=== PATIENT | male | born 1955 | race Caucasian/White ===

== ENCOUNTER 2016-12-17 05:30 | Observation (INO) | payer BC, OTHER ==
[2016-12-14 11:23] VITALS: BMI 33.2
[~2016-12-17] VITALS: Ht 177.8 cm; Wt 106.5 kg
[2016-12-17] VITALS (26 sets, daily range): BP systolic 121–161; BP diastolic 59–81; PULSE 88–113; RESP 16–22; Ht 177.8 cm; Wt 106.5 kg
[2016-12-17] MEDS ORDERED: SUCCINYLCHOLINE CHLORIDE 100 MG/5 ML SYG IV ONE (07:00)
[2016-12-17] MEDS ORDERED: GLYCOPYRROLATE 0.4 MG INJ ONE (07:00)
[2016-12-17] MEDS ORDERED: ROPIVACAINE 0.5 % 30 ML VIAL ONE ×2 (07:08→08:27)
[2016-12-17] MEDS ORDERED: MIDAZOLAM 1 MG/ML 2 ML INJ ONE (07:08)
[2016-12-17] MEDS ORDERED: FENTAnyl 50 MCG/ML VIAL ONE ×2 (07:08→07:40)
[2016-12-17] MEDS ORDERED: LIDOCAINE 1% (MDV) 20 ML INJ ONE (07:08)
[2016-12-17] MEDS ORDERED: PROPOFOL 20 ML ONE (07:39)
[2016-12-17] MEDS ORDERED: ROCURONIUM 50 MG INJ ONE (07:39)
[2016-12-17] MEDS ORDERED: VANCOMYCIN 1 GM INJ ONE (07:57)
[2016-12-17] MEDS ORDERED: FAMOTIDINE 20 MG INJ ONE (08:06)
[2016-12-17] MEDS ORDERED: ONDANSETRON 4 MG INJ ONE ×2 (08:06→14:12)
[2016-12-17] MEDS ORDERED: PHENYLephrine (100 MCG/ML) 5ML SYG ONE ×4 (08:17→14:21)
[2016-12-17] MEDS ORDERED: DIPHENHYDRAMINE 50 MG INJ ONE (08:25)
[2016-12-17] MEDS ORDERED: POVIDONE IODINE 10% 28.4 GM OINT ONE (08:28)
[2016-12-17] MEDS ORDERED: POLYMYXIN/BACITRACIN 1L IRRIG IRR ONE (09:01)
[2016-12-17] MEDS ORDERED: LIDOCAINE 2% JELLY 5 ML ONE (10:07)
[2016-12-17] MEDS ORDERED: LABETALOL HCL 20MG INJ IV PRN (10:30)
[2016-12-17] MEDS ORDERED: ONDANSETRON 4 MG INJ IV PRN ×2 (10:30→15:00)
[2016-12-17] MEDS ORDERED: HYDROmorphONE (0.2 MG/ML) 10ML SYG IV PRN (10:30)
[2016-12-17] MEDS ORDERED: HYDROmorphONE 2 MG/ML SYG ONE (10:50)
[2016-12-17] MEDS ORDERED: SODIUM CL BACTERIOSTATIC 30 ML INJ ONE (11:43)
[2016-12-17] MEDS ORDERED: NEOSTIGMINE 3 MG/3 ML SYRINGE ONE (14:12)
--- NOTE | 2016-12-17 14:52 | HPN ---
Date/Time of Note Date/Time of Note DATE: 12/17/16 TIME: 14:51 Interval H&P Admission Note Pt. seen H&P reviewed: No system changes Reviewed consent before surgery including risks and benefits for ORIF of the cuboid, Arthrodesis of the CC and TN joint with allograft and autograft and gastrocnemius recession Patient agrees RICHIE GRANDA MD Dec 17, 2016 14:52
--- NOTE | 2016-12-17 14:57 | OPR ---
Date/Time of Note Date/Time of Note DATE: 12/17/16 TIME: 14:57 Operative Report Procedure Date: Dec 17, 2016 Preoperative Diagnosis 1. Left foot cuboid fracture 2. 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 Left foot charcot arthropathy Postoperative Diagnosis 1. Left foot cuboid fracture 2. 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 Left foot charcot arthropathy Operation Performed 1. Left gastrocnemius recession 2. 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 Left foot cuboid open reduction internal fixation Surgeon: RICHIE GRANDA MD licensed loan officer assistant: CYNTHIA GRANDA MD Second Tree Expert: MIGUEL BAJWA Anesthesia: general, other Anesthesiologist: CUCA GUZMAN MD Tourniquet Time: 122 min a 250 mm Hg Estimated Blood Loss: 10 - 50 ml's Complications: None Pt Condition Post Procedure: stable Disposition: PACU RICHIE GRANDA MD Dec 17, 2016 14:57
[2016-12-17] MEDS ORDERED: DIPHENHYDRAMINE 25 MG CAP PO PRN (15:00)
[2016-12-17] MEDS ORDERED: morphine 10 MG INJ IV PRN (15:00)
[2016-12-17] MEDS ORDERED: OXYCODONE/ACETAMINOPHEN (5/325) TAB PO PRN (15:00)
[2016-12-17] MEDS ORDERED: POLYMYXIN/BACITRACIN 1L IRRIG ONE (15:10)
[2016-12-17] MEDS: morphine 1 MG/ML 30 ML (PCA) IV SCH (15:11)
[2016-12-17] MEDS: HYDROmorphONE (0.2 MG/ML) 10ML SYG IV PRN ×5 (15:14→15:37)
--- NOTE | 2016-12-17 15:31 | RADRPT ---
PROCEDURE: Intraoperative imaging of the left foot with fluoroscopy. CLINICAL INDICATION: Left foot pain. Intraoperative. TECHNIQUE: 6 images of the left foot were obtained in the operating room with an image intensifier . No radiologist was in attendance. COMPARISON: No prior study is available for comparison. FINDINGS: Images demonstrate fusion with multiple screws in the mid foot, talus and calcaneus. IMPRESSION: 1. Intraoperative imaging of the left foot. RPTAT: QQ .Abdi Beasley MD, MD Date Time Electronically viewed and signed by .Abdi Beasley MD, on 12/17/2016 15:30 .R/
[2016-12-17] MEDS ORDERED: GLUCOSE GEL 15 GRAM TUBE BUCCAL PRN (18:00)
[2016-12-17] MEDS ORDERED: DEXTROSE 50% 50 ML SYRINGE IV PRN ×2 (18:00)
[2016-12-17] MEDS ORDERED: GLUCOSE GEL 15 GRAM TUBE PO PRN ×2 (18:00)
[2016-12-17] MEDS ORDERED: GLUCAGON 1 MG INJ IM PRN (18:00)
[2016-12-17] MEDS ORDERED: VANCOMYCIN IV PER PHARMACY XX SCH (18:30)
[2016-12-17] MEDS: HYDROCHLOROTHIAZIDE 25 MG TAB PO SCH (18:49)
[2016-12-17] MEDS: LOSARTAN 25 MG TAB PO SCH (18:49)
[2016-12-17] MEDS ORDERED: PREG50CA PO (18:57)
[2016-12-17] MEDS ORDERED: SITA100T8 PO (18:57)
[2016-12-17] MEDS ORDERED: ASPI-664 PO (18:57)
[2016-12-17] MEDS ORDERED: ATOR40TA68 PO (18:57)
[2016-12-17] MEDS ORDERED: LOSA1TAB21 PO (18:57)
[2016-12-17] MEDS ORDERED: METF1000 PO (18:57)
[2016-12-17] MEDS: OXYCODONE/ACETAMINOPHEN (5/325) TAB PO SCH ×2 (19:00→23:00)
[2016-12-17] MEDS: INSULIN ASPART [NOVOLOG] 3 ML PEN SC SCH ×2 (19:29→21:12)
[2016-12-17 19:45] LABS: CREATININE 1.8 mg/dl (0.61-1.24)
--- NOTE | 2016-12-17 20:55 | HP ---
DATE OF ADMISSION: 12/17/2016 PRESENTING COMPLAINT: The patient was admitted for elective open reduction and internal fixation of his left ankle. ADMITTING SURGEON: Jeff Granda MD HISTORY OF PRESENT ILLNESS: Mr. Kidd is a 61-year-old male with a history of high blood pr essure and diabetes type 2 who came in today for elective repair of his left ankle after he sustaine d an injury in April 2016. Per report, he had several broken bones after he slipped on a dock. He seemed to have a basal chronic arthritis in that joint. He has successfully undergone the procedur e. For details, please review Dr. Granda's note. We will be following for diabetic and blood press ure management. PAST MEDICAL HISTORY: High blood pressure and diabetes type 2. Dyslipidemia. PAST SURGICAL HISTORY: He has had eye surgery, he has had previous elbows and wrists surgeries for neuropathy, and he has had tonsillectomy. ALLERGIES: HE HAS MULTIPLE DRUG ALLERGIES TO INCLUDE: 1. PENICILLINS. 2. CEPHALOSPORINS. 3. JEET INHIBITORS. 4. GABAPENTIN. 5. ____. 6. NEOMYCIN. 7. PHENOBARBITAL. 8. POLYMYXIN B. 9. BEE STINGS. HOME MEDICATIONS: Include: 1. Losartan. 2. Hydrochlorothiazide. 3. Januvia. 4. Lyrica. 5. Lipitor. 6. Aspirin. 7. Vitamins. SOCIAL HISTORY: Denies tobacco, alcohol, or illicit drug use. FAMILY HISTORY: Positive for cancer in his father, but no history of peripheral artery disease or s trokes or coronary artery disease. REVIEW OF SYSTEMS: I did a 12-point review of systems. Pertinent findings are as noted in the HPI. The patient does not have any acute symptoms other than being slightly lethargic from surgery. De nies chest pain, shortness of breath. Denies nausea, vomiting. Last good bowel movement was yester day. Denies dysuria, hematuria, or blood in his stool or in his urine. All other systems reviewed and negative. PHYSICAL EXAMINATION: VITAL SIGNS: Temperature 98.3, pulse 104, respirations 20, blood pressure 142/59, saturations 98% o n oxygen via nasal cannula at 2 liters a minute. GENERAL: Obese male, sleepy, but easily arousable. When aroused, alert and oriented to self, place , and person. HEENT: Head is normocephalic. Pupils are equal, round, reactive. Mucous membranes are slightly dr y. Posterior pharynx is clear of exudate. NECK: Supple without JVD. CHEST: Clear to auscultation. Good air entry on both sides. CARDIOVASCULAR: S1 and S2. No added sounds or murmurs. ABDOMEN: Obese, soft, nontender, nondistended, normoactive bowel sounds. EXTREMITIES: His right lower extremity basically is normal without edema with good range of motion, but his left lower extremity is heavily bandaged and splinted, but his visible toes are not cyanoti c and was able to wiggle them without difficulty. LABORATORY VALUES: There are no lab values to report right now, other than the fact that his blood glucose level is elevated at 202. IMPRESSION: A 61-year-old male who was admitted for elective left ankle repair after an accidental fall, managed for the following as well: 1. Poorly controlled diabetes mellitus type 2. 2. High blood pressure with suboptimal control. 3. Chronic dyslipidemia. 4. Chronic neuropathy. 5. Chronic arthritis. PLAN: The plan is to continue routine postop care per surgery. Pain control, antiemetics antipyret ics as needed. Resume home medications, titrate for improved control. Ensure the patient is on a l ow-cholesterol, 1800 ADA diet. Also include a sliding scale regimen. Prophylaxis: The patient has been started on Xarelto per the orthopedic surgeon. I will add Pepcid for GI prophylaxis. This plan of care has been discussed with the patient and his . Questions have been answered. For further information and clarification, please review the patient's chart and my orders. Dictated By: PAULINE OLIVEROS MD BA/NTS Conf#: [id number] DID#: [id number] CC: JEFF GRANDA MD;*EndCC*
[2016-12-17] MEDS ORDERED: ATORVASTATIN 20 MG TAB PO SCH (21:00)
[2016-12-17] MEDS ORDERED: VANCOMYCIN 1.5 GM in SOD CHLORIDE 0.9% 250 ML IVPB SCH (22:00)
[2016-12-18 00:06] VITALS: BP 137/72; RESP 18
[2016-12-18] MEDS: OXYCODONE/ACETAMINOPHEN (5/325) TAB PO SCH ×4 (03:00→15:59)
[2016-12-18 05:35] VITALS: BP 117/61; PULSE 115; RESP 19
[2016-12-18 06:07] LABS: MAGNESIUM 1.5 mg/dl (1.7-2.5)
[2016-12-18 06:32] LABS: THYROID STIMULATING HORMONE 0.518 MIU/L (0.465-4.680)
[2016-12-18 06:59] LABS: ADD SCAN DIFF NO
--- NOTE | 2016-12-18 07:22 | PN ---
Date/Time of Note Date/Time of Note DATE: 12/18/16 TIME: 07:19 Assessment/Plan Lines/Catheters IV Catheter Type (from Nrsg): Peripheral IV Marques in Place (from Nrsg): Yes Assessment/Plan Assessment/Plan POD#1 s/p Left foot CC and TN joint arthrodesis with allograft and local autograft, ORIF of the Cuboid, Gastroc recession - NWB to the LLE - appreciate Meds Recs for DMII and HTN - PT to GT - PO pain meds - SCDS,teds, xarelto - Patient ok to be dcd home today when cleared by medicine --- Eleno Granda MD Subjective 24 Hr Interval Summary Pain is well controlled. No f/c/n/v Constitutional: BM, ambulates, flatus, improved, no complaints, urine output Feeding: advancing diet Pain Control: well controlled Exam/Review of Systems Vital Signs Vitals Vital Signs Date Time Temp Pulse Resp B/P Pulse Ox O2 Delivery O2 Flow Rate FiO2 12/18/16 05:35 99.0 115 19 117/61 98 Nasal Cannula 2.0 Intake and Output 12/17/16 12/17/16 12/18/16 15:00 23:00 07:00 Intake Total 2400 ml 730 ml Output Total 1000 ml 1100 ml Balance 1400 ml -370 ml Exam Constitutional: alert, oriented, well developed Musculoskeletal: other (LLE/ toes wiggle, sens slightly decreased to m/l/d/p/ fdws) Results Result Diagram: 12/17/161914 RICHIE GRANDA MD Dec 18, 2016 07:22
--- NOTE | 2016-12-18 07:24 | DS ---
Date/Time of Note Date/Time of Note DATE: 12/18/16 TIME: 07:22 Discharge Summary Admission/Discharge Info Admit Date/Time Dec 17, 2016 at 14:56 Discharge Date/Time Final Diagnosis Left foot Charcot arthropathy Left foot TN and CC joint OA Left foot Cuboid fracture Patient Condition: Good Consults Internal Medicine Procedures 1. Left gastrocnemius recession 2. 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 Left foot cuboid open reduction internal fixation Hospital Course Patient admitted post op for pain control and medication management of the Diabetes an HTN. Pain well controlled post op and nvi at baseline Home Meds Reported Medications Sitagliptin* (Januvia*) 100 Mg Tablet, 100 MG PO DAILY, #30 TAB 12/17/16 Pregabalin* (Lyrica*) 50 Mg Capsule, 50 MG PO QID, CAP 12/17/16 Metformin Hcl* (Metformin Hcl*) 1,000 Mg Tablet, 2000 MG PO WITH BREAKFAST, #30 TAB 12/17/16 Losartan-Hydrochlorothiazide (Losartan-HCTZ) 100-12.5 Mg Tab, 1 TAB PO DAILY, TAB 12/17/16 Atorvastatin* (Atorvastatin*) 40 Mg Tablet, 40 MG PO QHS, #30 TAB 12/17/16 Aspirin* (Aspirin* EC) 81 Mg Tablet.dr, 81 MG PO DAILY, TAB 12/17/16 Follow-up Plan [address] Jeff Granda Pending Labs Laboratory Tests Test 12/17/16 09:51 12/17/16 18:19 12/17/16 19:15 12/17/16 21:03 Bedside Glucose 202mg/dL (70-220) 167mg/dL (70-220) 254mg/dL (70-220) Blood Urea Nitrogen 28mg/dl (7-20) Creatinine 1.80mg/dl (0.61-1.24) Test 12/18/16 05:08 Magnesium Level 1.5mg/dl (1.7-2.5) Thyroid Stimulating Hormone (TSH) 0.518MIU/L (0.465-4.680) JEFF GRANDA MD Dec 18, 2016 07:24
--- NOTE | 2016-12-18 07:26 | PDOCDIS ---
Discharge Instructions DIAGNOSIS Discharge Diagnosis: Left foot Charcot arthropathy CONDITION Patient Condition: Good HOME CARE INSTRUCTIONS: Diet Instructions: Low Fat /Cholesterol ACTIVITY: Activity Restrictions: Avoid heavy lifting Do not Drive Do not operate Machinery Do not operate Power Tool No Weight Bearing FOLLOW UP/APPOINTMENTS Appointments 1 week with RICHIE Epperson MD Dec 18, 2016 07:26
[2016-12-18 07:53] LABS: BASOPHILS % 0.3 % (0.0-2.0); EOSINOPHILS % 0.4 % (0.0-7.0); HEMATOCRIT 30.5 % (42.0-52.0); HEMOGLOBIN 10.1 g/dl (14.0-18.0); LYMPHOCYTES # 1.2 10^3/ul (0.8-2.9); LYMPHOCYTES % 12.4 % (15.0-51.0); MEAN CORPUSCULAR HEMOGLOBIN 27.7 pg (29.0-33.0); MEAN CORPUSCULAR HGB CONC 33.1 g/dl (32.0-37.0); MEAN CORPUSCULAR VOLUME 83.6 fl (82.0-101.0); MEAN PLATELET VOLUME 11.1 fl (7.4-10.4); MONOCYTE # 1.1 10^3/ul (0.3-0.9); MONOCYTES % 11.6 % (0.0-11.0); NEUTROPHIL # 7.2 10^3/ul (1.6-7.5); NEUTROPHILS % 74.9 % (39.0-77.0); PLATELET COUNT 154 10^3/UL (140-415); RED BLOOD COUNT 3.65 10^6/ul (4.70-6.10); RED CELL DISTRIBUTION WIDTH 14.6 % (11.5-14.5); WHITE BLOOD COUNT 9.6 10^3/ul (4.8-10.8)
[2016-12-18 08:10] VITALS: BP 122/64; RESP 18
[2016-12-18] MEDS: HYDROCHLOROTHIAZIDE 25 MG TAB PO SCH (08:45)
[2016-12-18] MEDS: LOSARTAN 25 MG TAB PO SCH (08:45)
[2016-12-18] MEDS: INSULIN ASPART [NOVOLOG] 3 ML PEN SC SCH ×2 (08:54→11:40)
[2016-12-18 08:57] LABS: ALBUMIN 3.4 g/dl (3.3-4.9); POTASSIUM 4.9 mmol/L (3.5-5.1)
[2016-12-18 08:59] LABS: BILIRUBIN,INDIRECT 0.3 mg/dl (0-1.1); BILIRUBIN,TOTAL 0.3 mg/dl (0.2-1.3); CREATININE 1.81 mg/dl (0.61-1.24)
[2016-12-18 09:00] LABS: ALBUMIN/GLOBULIN RATIO 1.09; TOTAL PROTEIN 6.5 g/dl (6.1-8.1)
[2016-12-18] MEDS ORDERED: ASPIRIN (EC) 81 MG TAB PO SCH (09:00)
[2016-12-18 09:01] LABS: CALCIUM 8.5 mg/dl (8.4-10.2)
[2016-12-18 10:47] LABS: ADD UMIC YES; URINE BILIRUBIN (Dip) NEGATIVE (NEGATIVE); URINE BLOOD (Dip) 1+ (NEGATIVE); URINE COLOR LT. YELLOW (YELLOW); URINE KETONES (Dip) NEGATIVE (NEGATIVE); URINE LEUKOCYTE ESTERASE (Dip) NEGATIVE (NEGATIVE); URINE NITRITE (Dip) NEGATIVE (NEGATIVE); URINE TOTAL PROTEIN (Dip) NEGATIVE (NEGATIVE); URINE UROBILINOGEN (Dip) 0.2 E.U./dL (0.1-1.0)
--- NOTE | 2016-12-18 10:57 | OPR ---
DATE OF OPERATION: 12/17/2016 SURGEON: Richie Valladares MD AUTO GARAGE ATTENDANT SURGEON: Devon Valladares MD SECOND AUTO GARAGE ATTENDANT SURGEON: EVELYN Celestin OPERATION PERFORMED: 1. Left foot gastroc resection. 2. Left foot calcaneal cuboid joint arthrodesis with autograft and allograft. 3. Left foot talonavicular joint arthrodesis with allograft and autograft. 4. Left foot cuboid open reduction internal fixation. 5. Short leg cast. 6. Use of fluoroscopy. ANESTHESIA: General with popliteal block and saphenous block. ANESTHESIOLOGIST: MD Miguelangel TOURNIQUET TIME: 122 minutes at 250 mmHg. COMPLICATIONS: None. IMPLANTS: Two Arthrex dorsal compression plates with screws and 2 partially threaded compression lag screws. INDICATIONS: The patient is a 62-year-old gentleman with a history of diabetes who sustained a cuboid fracture in April 2016. He presented in delayed fashion to me until the end of August 2016 and the patient was identified as having a cuboid fracture that was placed plantarly causing increasing pain as well as concomitant TN and CC joint OA. The patient was indicated for surgical fixation and arthrodesis. The patient was cleared by his primary care physician as well as by Dr. Carlos Kay from vascular surgery, and thus we could proceed with surgery. RISK NOTE: The patient was explained the risks and benefits of surgery in the patient's [place] language including, but not limited to, infection, bleeding, loss of limb, loss of life, need for future surgery, risk of injury to blood vessels, nerves, ligaments or tendons, risk of amputation, risk of DVT, risk of anesthesia. The patient acknowledges risks, by signing the surgical consent form. OPERATIVE NOTE: The patient was met in the preoperative holding area and the operative extremity was marked and confirmed via consent and with patient. The patient was then brought back in the operative theater, given preoperative vancomycin due to a PENICILLIN ALLERGY. Preoperative regional block anesthesia was given. The patient was then prepped and draped in the normal sterile fashion. All parties in the room agreed it was correct patient, correct extremity, correct procedure. Attention was initially turned to the mid calf on the medial aspect and incision was made over the mid calf along the medial border where it eventually carried down to the posterior fascia. The sural nerve was identified and protected. The fascia that overlaid the superficial posterior compartment was identified, and the gastroc was identified, put on stretch while the hindfoot was inverted and the fascia of the gastrocnemius was divided proximally, leaving the underlying muscle intact. After the ankle was tested to be able to do dorsiflexion 10 degrees past neutral while the hindfoot was inverted, it was noted that this was successfully achieved. We will irrigate thoroughly and close in layers with 2-0 Monocryl followed by a 3-0 running Monocryl, and Steri-Strips were placed. Attention was then turned to the calcaneal cuboid joint. Esmarch was brought up to 250 mmHg and incision was made over the calcaneal cuboid joint starting at the base of the fibula and to the fourth metatarsal. Incision was deepened into the torn brevis with care taken to identify any anterior branch of the sural nerve which was protected. The capsule of the EDB was opened and its origins were released and reflected distally. The calcaneal cuboid joint was identified, opened dorsally using a periosteal elevator. Articular cartilage was removed from the calcaneal cuboid joint and then deep retractors were placed along the wound along the plantar aspect; at this point it is noted that the fracture from the cuboid had been plantarly displaced and had gone through the plantar fascia. At this point, given the complexity due to the length in time the fracture was displace, the fracture was reduced as well as possible given the extensive amount of time that the fracture had been displaced, approximately 8 months. Once the fracture was reduced, held in place with K- wires, and then fixed with a partially threaded screw. Once the fracture was reduced and the calca-cuboid cartilage was fully debrided abd debuded and the bone was tamped up with osteotomes and a drill bit, attention was then turned to the talonavicular joint. A dorsal medial incision was made with care to avoid any injury to the neurovascular structures. The talonavicular joint was identified, opened up, and using an osteotome with curette and a drill bit and cartilage were adequately debrided to facilitate excellent fusion and proper alignment with the hindfoot in slight valgus, the talonavicular joint was reduced and fixed with a partially threaded screw followed by a dorsiflexion plate after the joint had been packed with allograft and autograft of local bone. Excellent fixation was achieved and shown in both AP, lateral, and oblique views on x- ray. Attention was then turned back to the CC joint, and again a dorsal plate was then placed across that joint and compression was then achieved at that joint as well with the foot brought into a plantar grade position. The fixation could be well achieved, and packed with allograt and local autograft was placed into the CC and TN joint. Wounds were irrigated thoroughly. The capsule was closed and the wound closed in layers with 2-0 Vicryl followed by 3- 0 Monocryl and a 4-0 nylon in vertical mattress fashion. All wounds were dressed with Xeroform, 4x4s, ABDs, and the patient was placed in a well-padded short leg splint. All sponge and needle counts were correct Modifier 22 Note: This case deserves a modifier 22 given the fact the fracture was over 8 months out from the fracture with extensive displacement and scar tissue. Also given the fact that the patient was a Charcot diabetic injury incited a week or quality of bone and more difficulty with soft tissue management to prevent any sort of infection. Given the complexity and length of time required to manage this injury the surgery should be given a modifier 22 , treated accordingly Asst. note: An orthopedic surgeon was needed as an legal support assistant for this case due to the complexity of this case. The legal support assistant performed retraction and alignment of the osteotome and saw with foot was being held into proper position and drilling also while the foot and ankle were being held in proper position. Without a orthopedic surgeon who is an expert in surgery assisting in this case the case to be a lot longer and more complex. Thus should be compensated accordingly Dictated By: RICHIE SALEH/GEOVANI Conf#: [id number] DID#: [id number] MTDD
[2016-12-18 11:37] LABS: BACTERIA,URINE RARE; URINE RBCS 0-2 /HPF (0)
[2016-12-18] MEDS ORDERED: METF1000 PO (12:12)
[2016-12-18] MEDS: morphine 1 MG/ML 30 ML (PCA) IV SCH (12:12)
--- NOTE | 2016-12-18 12:20 | PN ---
Date/Time of Note Date/Time of Note DATE: 12/18/16 TIME: 12:12 Assessment/Plan VTE Prophylaxis VTE Prophylaxis Intervention: other (Xarelto) Lines/Catheters IV Catheter Type (from Nrs): Peripheral IV Urinary Cath still in place: Yes Reason Cath still needed: other (indicate) (howard d/c) Assessment/Plan Assessment/Plan A 61-year-old male who was admitted for elective left ankle repair after an accidental fall, managed for the following as well: 1. Diabetes mellitus type 2. A1c 7.4 2. High blood pressure with good control 3. Chronic dyslipidemia. 4. Chronic neuropathy. 5. Chronic arthritis. 6. CKD 7. Transient postop Urinary retention: resolved PLAN: * OK to d/c from med standpoint * f/u with PCP in 1-2 weeks * will give short course of flomax * May benefit from outpt nephrology review Subjective 24 Hr Interval Summary Free Text/Dictation looks and feels well reports voiding without difficulty Exam/Review of Systems Vital Signs Vitals Vital Signs Date Time Temp Pulse Resp B/P Pulse Ox O2 Delivery O2 Flow Rate FiO2 12/18/16 09:00 18 12/18/16 08:10 97.9 112 122/64 97 12/18/16 05:35 Nasal Cannula 2.0 Intake and Output 12/17/16 12/17/16 12/18/16 15:00 23:00 07:00 Intake Total 2400 ml 730 ml Output Total 1000 ml 1100 ml Balance 1400 ml -370 ml Exam Constitutional: alert, oriented, No distress Psych: nl mood/affect Head: atraumatic, normocephalic Eyes: PERRL, No icteric ENMT: mucosa pink and moist Neck: non-tender, supple Respiratory: clear to auscultation, normal air movement Cardiovascular: nl pulses, regular rate and rhythm Gastrointestinal: bowel sounds, non-tender, soft Extremities: other (L LE heavily bandaged and wrapped), No edema (RL) Neurological: nl mental status, nl speech Results Result Diagram: 12/18/16 0508 12/18/16 0508 Results 24 hrs Laboratory Tests Test 12/17/16 18:19 12/17/16 19:15 12/17/16 21:03 12/18/16 05:08 Bedside Glucose 167 254 H Blood Urea Nitrogen 28 H 26 H Creatinine 1.80 H 1.81 H White Blood Count 9.6 Red Blood Count 3.65 L Hemoglobin 10.1 L Hematocrit 30.5 L Mean Corpuscular Volume 83.6 Mean Corpuscular Hemoglobin 27.7 L Mean Corpuscular Hemoglobin Concent 33.1 Red Cell Distribution Width 14.6 H Platelet Count 154 Mean Platelet Volume 11.1 H Neutrophils % 74.9 Lymphocytes % 12.4 L Monocytes % 11.6 H Eosinophils % 0.4 Basophils % 0.3 Nucleated Red Blood Cells % 0.0 Neutrophils # 7.2 Lymphocytes # 1.2 Monocytes # 1.1 H Eosinophils # 0.0 Basophils # 0.0 Nucleated Red Blood Cells # 0.0 Sodium Level 133 L Potassium Level 4.9 Chloride Level 104 Carbon Dioxide Level 25 Anion Gap 9 Glucose Level 203 Hemoglobin A1c 7.4 H Calcium Level 8.5 Magnesium Level 1.5 L Total Bilirubin 0.3 Direct Bilirubin 0.00 Indirect Bilirubin 0.3 Aspartate Amino Transf (AST/SGOT) 47 H Alanine Aminotransferase (ALT/SGPT) 34 Alkaline Phosphatase 104 Total Protein 6.5 Albumin 3.4 Globulin 3.10 Albumin/Globulin Ratio 1.09 Thyroid Stimulating Hormone (TSH) 0.518 Test 12/18/16 08:42 Bedside Glucose 191 Medications Medications Current Medications Morphine Sulfate (morphine) 5 mg Q4H PRN IV PAIN LEVEL 7-10; Start 12/17/16 at 15:00 Ondansetron HCl (Zofran Inj) 4 mg Q4H PRN IV NAUSEA AND/OR VOMITING; Start 12/17 at 15:00 Diphenhydramine HCl (Benadryl) 25 mg Q4H PRN PO ITCHING; Start 12/17/16 at 15:00 Morphine Sulfate (morphine) 1.5 MG DOSE 10 ... Q4PCA IV Last administered on 12:12; Admin Dose 30 MG; Start 12/17/16 at 15:00 Hydrochlorothiazide (Hydrochlorothiazide) 25 mg DAILY PO Last administered on 08:45; Admin Dose 25 MG; Start 12/17/16 at 18:00 Losartan Potassium (Cozaar) 25 mg DAILY PO Last administered on 12/18/16 08:45 ; Admin Dose 25 MG; Start 12/17/16 at 18:00 Atorvastatin Calcium (Lipitor) 20 mg HS PO Last administered on 12/17/16 21:09 ; Admin Dose 20 MG; Start 12/17/16 at 21:00 Aspirin (Halfprin) 81 mg DAILY PO Last administered on 12/18/16 08:44; Admin Dose 81 MG; Start 12/18/16 at 09:00 Miscellaneous Information 1 ea NOTE XX ; Start 12/17/16 at 18:00 Glucose (Glutose) 15 gm Q15M PRN PO DECREASED GLUCOSE; Start 12/17/16 at 18:00 Glucose (Glutose) 22.5 gm Q15M PRN PO DECREASED GLUCOSE; Start 12/17/16 at 18:00 Dextrose (D50w Syringe) 25 ml Q15M PRN IV DECREASED GLUCOSE; Start 12/17/16 at 18:00 Dextrose (D50w Syringe) 50 ml Q15M PRN IV DECREASED GLUCOSE; Start 12/17/16 at 18:00 Glucagon (Glucagen) 1 mg Q15M PRN IM DECREASED GLUCOSE; Start 12/17/16 at 18:00 Glucose (Glutose) 15 gm Q15M PRN BUCCAL DECREASED GLUCOSE; Start 12/17/16 at 18: 00 Oxycodone/ Acetaminophen 2 tab 2 tab Q4H PO Last administered on 12/18/16 08:44 ; Admin Dose 2 TAB; Start 12/17/16 at 19:00 Magnesium Sulfate (Magnesium Sulfate 2 Gm/50 ml) 50 ml @ 25 mls/hr ONCE ONCE IVPB ; Start 12/18/16 at 12:30; Stop 12/18/16 at 14:29; Status PAULINE WALTER Dec 18, 2016 12:20
[2016-12-18] MEDS ORDERED: TAMS-14 PO (12:21)
[2016-12-18] MEDS ORDERED: PREG50CA PO (12:23)
[2016-12-18] MEDS ORDERED: MAGNESIUM SULFATE 2 GM/50 ML 50 ML IVPB ONE (13:30)
[2016-12-18] MEDS ORDERED: RIVAROXABAN 10 MG TABLET PO SCH (17:55)
== END 2016-12-18 16:45 | disposition home or self-care (01) ==
LOC: SDS 05:30 → MS1 14:56
PROVIDERS: ADMIT Orthopaedic Surgery; ATTEND Orthopaedic Surgery
DX: S92.212A Displaced fracture of cuboid bone of left foot, initial encounter for closed fracture (principal); M19.072 Primary osteoarthritis, left ankle and foot; E11.610 Type 2 diabetes mellitus with diabetic neuropathic arthropathy; E11.40 Type 2 diabetes mellitus with diabetic neuropathy, unspecified; I10 Essential (primary) hypertension; E78.5 Hyperlipidemia, unspecified; Z79.82 Long term (current) use of aspirin; Z88.1 Allergy status to other antibiotic agents; Z88.8 Allergy status to other drugs, medicaments and biological substances; Z88.0 Allergy status to penicillin; Z91.030 Bee allergy status; W19.XXXA Unspecified fall, initial encounter; Y93.9 Activity, unspecified; Y99.9 Unspecified external cause status; Y92.9 Unspecified place or not applicable
CPT/HCPCS: 27687; 28465; 28740; 73630; 80053; 81001; 81003; 82306; 82565; 82962; 83036; 83735; 84443; 84520; 85025; 96365; 96366; 96372; 96375; 97116; 97163; 97530; G0378; J0330; J1170; J1815; J2250; J2270; J2370; J2405; J2710; J2795; J3010; J3370; J3475; J7050; J1200

== ENCOUNTER 2016-12-24 15:40 | Inpatient (IN) | payer OTHER ==
[~2016-12-24] VITALS: Ht 177.8 cm; Wt 101.8 kg
[~2016-12-24 15:40] MED LIST: ASPI-664 PO; ATOR40TA68 PO; LOSA1TAB21 PO; METF1000 PO; PREG50CA PO; SITA100T8 PO; TAMS-14 PO
[2016-12-24 15:49] VITALS: Ht 177.8 cm; Wt 101.8 kg
[2016-12-24] MEDS ORDERED: AZTREONAM 1 GM/NS (PMX) 50 ML IVPB STA (18:19)
[2016-12-24] MEDS ORDERED: SODIUM CHLORIDE 0.9% 1L BAG IV* STA (18:19)
[2016-12-24] MEDS ORDERED: VANCOMYCIN 1 GM (PMX) 250 ML IVPB STA (18:19)
--- NOTE | 2016-12-24 18:25 | CONS ---
Date/Time of Note Date/Time of Note DATE: 12/24/16 TIME: 18:25 Assessment/Plan Assessment/Plan Additional Assessment/Plan POD# 6 s/p left foot TN and CC joint arthrodesis with allograft and autograft, ORIF of cuboid. Concern for flu or pneumonia - NWB to the LLE - ESR, CRP, CMP, CBC - Broad Spectrum Abx - Blood cultures - Will do dressing change to the left foot tomorrow afternoon ---- Eleno Granda MD Consultation Date/Type/Reason Admit Date/Time 12/24/16 Date of Consultation: Dec 24, 2016 Type of Consultation: Orthopedic Surgery Referring Provider: LIZETT HOWARD Hx of Present Illness Patient is a 61-year-old gentleman with history of diabetes type 2 and Charcot arthropathy now 1 week status post left foot calcaneus and talonavicular joint arthrodesis and cuboid open reduction and internal fixation. He presented to my office today with 2 days of low grade fever and decreased appetite with general malaise along with chest congestion. My concern was for possible pneumonia or flu given his symptoms. His left wound appeared swollen but there is no drainage warmth or erythema Constitutional: chills Past Medical History Charcot arthropathy Medical History: diabetes, high cholesterol, hypertension Past Surgical History Left foot calcaneal cuboid and talonavicular joint arthrodesis with open reduction internal patient of the cuboid Family History Significant Family History: diabetes Social History Alcohol Use: none Smoking Status: Never smoker Drug Use: none Exam/Review of Systems Vital Signs Vitals Vital Signs Date Time Temp Pulse Resp B/P Pulse Ox O2 Delivery O2 Flow Rate FiO2 12/24/16 15:49 98.8 102 18 120/72 99 Exam Constitutional: alert, oriented, well developed Musculoskeletal: other (lle/ increased swelling, no drainage, decreased sens to light touch to the m/l/d/p/fdws distribution (baseline), toes wiggle) RICHIE GRANDA MD Dec 24, 2016 18:25
[2016-12-24] MEDS ORDERED: ACETAMINOPHEN 325 MG TAB PO PRN ×2 (18:30→22:30)
[2016-12-24] MEDS ORDERED: ONDANSETRON 4 MG INJ IV PRN ×2 (18:30→22:30)
[2016-12-24] MEDS ORDERED: METF500T4 PO (19:16)
[2016-12-24] MEDS ORDERED: ALPH200T2 PO (19:17)
[2016-12-24] MEDS ORDERED: VITA1CAP PO (19:22)
[2016-12-24] MEDS ORDERED: RIVA10TA PO (19:25)
[2016-12-24 19:26] LABS: ADD SCAN DIFF NO
[2016-12-24 19:33] LABS: BASOPHILS % 0.4 % (0.0-2.0); EOSINOPHILS # 0.5 10^3/ul (0.0-0.5); EOSINOPHILS % 6.1 % (0.0-7.0); HEMATOCRIT 29.4 % (42.0-52.0); HEMOGLOBIN 9.8 g/dl (14.0-18.0); LYMPHOCYTES # 1.5 10^3/ul (0.8-2.9); MEAN CORPUSCULAR HGB CONC 33.3 g/dl (32.0-37.0); MEAN PLATELET VOLUME 9.6 fl (7.4-10.4); MONOCYTE # 0.7 10^3/ul (0.3-0.9); NEUTROPHIL # 4.9 10^3/ul (1.6-7.5); PLATELET COUNT 283 10^3/UL (140-415); RED BLOOD COUNT 3.63 10^6/ul (4.70-6.10); RED CELL DISTRIBUTION WIDTH 13.9 % (11.5-14.5); WHITE BLOOD COUNT 7.7 10^3/ul (4.8-10.8)
[2016-12-24 19:42] LABS: INR 1.26; PROTIME 15.9 Sec (12.2-14.2); PT RATIO 1.2
[2016-12-24 19:43] LABS: PARTIAL THROMBOPLASTIN TIME 37.9 Sec (25.0-35.0)
[2016-12-24 19:44] LABS: ALBUMIN 3.6 g/dl (3.3-4.9)
[2016-12-24 19:46] LABS: BILIRUBIN,INDIRECT 0.4 mg/dl (0-1.1); BILIRUBIN,TOTAL 0.4 mg/dl (0.2-1.3); CREATININE 1.83 mg/dl (0.61-1.24)
[2016-12-24 19:47] LABS: ALBUMIN/GLOBULIN RATIO 0.9; TOTAL PROTEIN 7.6 g/dl (6.1-8.1)
[2016-12-24 19:48] LABS: CALCIUM 9.6 mg/dl (8.4-10.2)
[2016-12-24 19:50] LABS: C-REACTIVE PROTEIN 5.9 mg/dl (0.0-0.9)
[2016-12-24 19:57] LABS: TROPONIN-I 0.065 ng/ml (0.00-0.12)
--- NOTE | 2016-12-24 20:22 | RADRPT ---
PROCEDURE: XR Chest AP portable CLINICAL INDICATION: Possible sepsis TECHNIQUE: An AP portable radiograph of the chest was submitted. COMPARISON: None. FINDINGS: Support Hardware: None Cardiovascular: The heart is enlarged but the aorta appears atherosclerotic. The peripheral pulmona ry vasculature is upper normal. Lung Diop: The lung diop appear clear with no nodule, alveolar infiltrate, or interstitial promi nence evident. Pleural Spaces: No pneumothorax or pleural effusion is identified. Osseous Structures: The osseous structures appear intact. Soft Tissues: The soft tissues appear generous. IMPRESSION: 1. Aortic tortuosity 2. Otherwise, unremarkable portable chest. Physician Neftaly Date Time Electronically viewed and signed by Physician Neftaly on 12/24/2016 20:22 /
[2016-12-24 20:27] VITALS: PULSE 88
--- NOTE | 2016-12-24 20:57 | ERA ---
ER Documentation Chief Complaint Date/Time DATE: 12/24/16 TIME: 20:56 Chief Complaint SENT BY PMD, FOR FURTHER EVALUATION, POSSIBLE SEPSIS HPI Patient is a 61-year-old male with hypertension and diabetes who presents with possible sepsis. The patient was sent by Dr. Valladares his orthopedic surgeon. 1 week ago he had left-sided ankle surgery for a Charcot joint. The patient initially did well the few days after surgery but 2-3 days ago he started with "chest congestion". He had headache and upset stomach. He also felt chills. He took Tylenol today and saw Dr. Valladares in his office. The patient has been coughing up phlegm. He denies any leg swelling other than swelling around the site of the surgery. He has had no urinary symptoms. ROS All systems reviewed and are negative except as per history of present illness. Medications Home Meds Active Scripts Pregabalin* (Lyrica*) 50 Mg Capsule, 50 MG PO BID for 30 Days, CAP reduced to BID due to renal function Prov:PAULINE OLIVEROS 12/18/16 Reported Medications Rivaroxaban* (Xarelto*) 10 Mg Tablet, 10 MG PO DAILY, TAB 12/24/16 Vitamin B Complex (Vitamin B Complex) 1 Each Capsule, 1 EACH PO DAILY, CAP 12/24/16 Alpha Lipoic Acid (Alpha Lipoic Acid) 200 Mg Tablet, 400 MG PO DAILY, TAB 12/24/16 Metformin Hcl* (Metformin Hcl*) 500 Mg Tablet, 1000 MG PO WITH BREAKFAST DINNE, #60 TAB 12/24/16 Sitagliptin* (Januvia*) 100 Mg Tablet, 100 MG PO DAILY, #30 TAB 12/17/16 Losartan-Hydrochlorothiazide (Losartan-HCTZ) 100-12.5 Mg Tab, 1 TAB PO DAILY, TAB 12/17/16 Atorvastatin* (Atorvastatin*) 40 Mg Tablet, 40 MG PO QHS, #30 TAB 12/17/16 Aspirin* (Aspirin* EC) 81 Mg Tablet.dr, 81 MG PO DAILY, TAB 12/17/16 Discontinued Scripts Tamsulosin Hcl* (Flomax*) 0.4 Mg Cap.er.24h, 0.4 MG PO DAILY for 14 Days, CAP Prov:PAULINE OLIVEROS 12/18/16 Metformin Hcl* (Metformin Hcl*) 1,000 Mg Tablet, 1000 MG PO WITH BREAKFAST DINNE for 60 Days, TAB 2 Refills Prov:PAULINE OLIVEROS. 12/18/16 Allergies Allergies: Coded Allergies: Penicillins (Verified Allergy, Severe, ANAPHALACTIC SHOCK, 12/24/16) ampicillin (Verified Allergy, Severe, ANAPHALACTIC SHOCK, 12/24/16) cephalexin (Verified Allergy, Severe, SEVERE HIVES AND SOB, 12/24/16) enalaprilat (Verified Allergy, Severe, ANGIOEDEMA, 12/24/16) griseofulvin (Verified Allergy, Intermediate, HIVES, 12/24/16) phenobarbital (Verified Allergy, Intermediate, 12/24/16) amoxicillin (Verified Allergy, Unknown, 12/24/16) bacitracin (Verified Allergy, Unknown, 12/24/16) gabapentin (Verified Allergy, Unknown, 12/24/16) neomycin (Verified Allergy, Unknown, 12/24/16) polymyxin B (Verified Allergy, Unknown, 12/24/16) Uncoded Allergies: BEE STING (Allergy, Severe, ANAPHALACTIC SHOCK, 12/14/16) PMhx/Soc History of Surgery: Yes (Tonsillectomy, left eye surg, bone spur , left leg, left elbow/wrist) Anesthesia Reaction: No Hx Neurological Disorder: No Hx Respiratory Disorders: No Hx Cardiac Disorders: Yes (HTN, High Cholest) Hx Psychiatric Problems: No Hx Miscellaneous Medical Probl: Yes (HTN, DM2) Hx Alcohol Use: Yes (socially- couple times a month) Hx Substance Use: No Hx Tobacco Use: No Smoking Status: Never smoker FmHx Family History: No diabetes Physical Exam Vitals Vital Signs Date Time Temp Pulse Resp B/P Pulse Ox O2 Delivery O2 Flow Rate FiO2 12/24/16 20:27 88 16 139/87 99 Room Air 12/24/16 15:49 98.8 102 18 120/72 99 Physical Exam Const: No acute distress Head: Atraumatic Eyes: Normal Conjunctiva ENT: Normal External Ears, Nose and Mouth. Neck: Full range of motion..~ No meningismus. Resp: Clear to auscultation bilaterally Cardio: Regular rate and rhythm, no murmurs Abd: Soft, non tender, non distended. Normal bowel sounds Skin: No petechiae or rashes Back: No midline or flank tenderness Ext: Cast in the left lower extremity Neur: Awake and alert Psych: Normal Mood and Affect Result Diagram: 12/24/16189912/24/161899 Results 24 hrs Laboratory Tests Test 12/24/16 19:00 White Blood Count 7.710^3/ul Red Blood Count 3.6310^6/ul Hemoglobin 9.8g/dl Hematocrit 29.4% Mean Corpuscular Volume 81.0fl Mean Corpuscular Hemoglobin 27.0pg Mean Corpuscular Hemoglobin Concent 33.3g/dl Red Cell Distribution Width 13.9% Platelet Count 57081^3/UL Mean Platelet Volume 9.6fl Neutrophils % 64.0% Lymphocytes % 20.0% Monocytes % 9.0% Eosinophils % 6.1% Basophils % 0.4% Nucleated Red Blood Cells % 0.0/100WBC Neutrophils # 4.910^3/ul Lymphocytes # 1.510^3/ul Monocytes # 0.710^3/ul Eosinophils # 0.510^3/ul Basophils # 0.010^3/ul Nucleated Red Blood Cells # 0.010^3/ul Erythrocyte Sedimentation Rate 75mm/Hr Prothrombin Time 15.9Sec Prothrombin Time Ratio 1.2 INR International Normalized Ratio 1.26 Activated Partial Thromboplast Time 37.9Sec Sodium Level 139mmol/L Potassium Level 4.0mmol/L Chloride Level 101mmol/L Carbon Dioxide Level 23mmol/L Anion Gap 19 Blood Urea Nitrogen 30mg/dl Creatinine 1.83mg/dl Glucose Level 164mg/dl Lactic Acid Level 2.5mmol/L Calcium Level 9.6mg/dl Total Bilirubin 0.4mg/dl Direct Bilirubin 0.00mg/dl Indirect Bilirubin 0.4mg/dl Aspartate Amino Transf (AST/SGOT) 44IU/L Alanine Aminotransferase (ALT/SGPT) 68IU/L Alkaline Phosphatase 98IU/L Troponin I 0.065ng/ml C-Reactive Protein 5.9mg/dl Total Protein 7.6g/dl Albumin 3.6g/dl Globulin 4.00g/dl Albumin/Globulin Ratio 0.90 Current Medications Medications (Trade) Dose Ordered Sig/Joaquina Route PRN Reason Start Time Stop Time Status Last Admin Dose Admin Sodium Chloride 3160 ml 3,160 ml BOLUS OVER 2 HOURS STAT IV* 12/24/16 18:19 12/24/16 18:21 DC 4/10/17 19:25 Vancomycin HCl 250 ml @ 125 mls/hr ONCE STAT IVPB 12/24/16 18:19 12/24/16 20:18 DC 12/24/16 20:25 Aztreonam (Azactam 1gm/NS (Pmx)) 50 ml @ 100 mls/hr ONCE STAT IVPB 12/24/16 18:19 12/24/16 18:48 DC 12/24/16 19:30 Ondansetron HCl (Zofran Inj) 4 mg BRIDGE ORDER PRN IV NAUSEA AND/OR VOMITING 12/24/16 18:30 12/25/16 18:29 Acetaminophen (Tylenol Tab) 650 mg ER BRIDGE PRN PO MILD PAIN/FEVER 12/24/16 18:30 12/25/16 18:29 Procedures/MDM EKG read by me: Rate/Rhythm: Regular rate and rhythm at a normal rate Intervals: Normal Impression: No evidence of ischemia or arrhythmia Chest x-ray shows no obvious pneumonia or pneumothorax per radiology. Admit MDM: Patient's infectious symptoms have not stabilized and the patient is at risk of rapid decompensation. The patient will be admitted for careful hydration, antibiotic therapy, and infectious source control. Severe Sepsis criteria: Infectious source: Possible pneumonia End organ damage indicated by: Lactate greater than 2.0 Sepsis Management: Time of recognition of sepsis: 19:00 Within 3 hours of recognition: Blood cultures x 2 before broad-spectrum antibiotics: Yes 30 ml/kg NS bolus Completed Initial lactate 2.5 Repeat lactate pending Time of recognition of septic shock: No septic shock Septic Shock Assessment: Any lactic acid > 4.0 No Persistent hypotension (SBP < 90 or 40 mmHg drop, MAP < 65) despite 30 mL/kg IV fluid bolus No Volume Re-assessment for Septic Shock (post 30 ml/kg bolus): No septic shock at this time Persistent Hypotension Treatment: Comfort care No Central line Not Required Vasopressor started Not required I considered further perfusion assessment with CVP measurement, SCVO2, bedside ultrasound volume assessment, passive leg raise, trial of further fluid bolus. And proceeded with 30 ml/kg fluid bolus of NSS, broad spectrum antibiotics, and admission. Accepting Care Team Current data and ongoing care discussed. Admitting Physician: Dr. Chaudhry as the patient has been admitted by the panel team previously [place] Attendant(s): Dr. Valladares who has seen the patient at the bedside Outstanding Data: Repeat lactic acid and culture results Critical Care: Critical care time 35 minutes excluding all billable procedures Emergent fluid management while maintaining close respiratory support. Provision of immediate and broad-spectrum antibiotic therapy. Simultaneous assessment for possible sources in order to direct targeted therapy. Consideration for invasive and chemical support to prevent cardiopulmonary collapse. Departure Diagnosis: Primary Impression: Anemia Qualified Code: D64.9 - Anemia, unspecified type Additional Impression: Severe sepsis Condition: LIZABETH Curtis MD Dec 24, 2016 20:57
[2016-12-24 21:26] VITALS: BP 136/78; RESP 18
[2016-12-24] MEDS ORDERED: CEFEPIME 1GM/50 ML (PMX) 50 ML IVPB SCH (22:30)
[2016-12-24] MEDS ORDERED: VANCOMYCIN IV PER PHARMACY XX SCH (22:30)
[2016-12-24] MEDS ORDERED: GLUCOSE GEL 15 GRAM TUBE BUCCAL PRN (23:00)
[2016-12-24] MEDS ORDERED: PREGABALIN 25 MG CAP PO SCH (23:00)
[2016-12-24] MEDS ORDERED: GLUCAGON 1 MG INJ IM PRN (23:00)
[2016-12-24] MEDS ORDERED: GLUCOSE GEL 15 GRAM TUBE PO PRN ×2 (23:00)
[2016-12-24] MEDS ORDERED: DEXTROSE 50% 50 ML SYRINGE IV PRN ×2 (23:00)
--- NOTE | 2016-12-24 23:06 | HP ---
Date/Time of Note Date/Time of Note DATE: 12/24/16 TIME: 23:06 Assessment/Plan VTE Prophylaxis VTE Prophylaxis Intervention: other Assessment/Plan Assessment/Plan IMPRESSION 1. Probable URI 2. Recent Left Foot Surgery 3. Hx of Diabetes 4. Hx of HTN 5. Lactic Acidosis: resolved PLAN Will check Influenza A & B Will f/u Blood cx and urine cx Will place on abx. note pt has multiple allergies Will place ID consult If pt febrile with negative URI and UTI w/u, then will consider CT of left foot. Note that, physical exam by ortho without worrisome findings. HPI/ROS Admit Date/Time Admit Date/Time 12/24/16 Hx of Present Illness Patient is a 61-year-old male with a history of high blood pressure and diabetes type 2 and elective surgery of his left ankle a week ago who was sent to ER from Ortho clinic for evaluation of subjective fever, chest congestion and mild cough. In ER, he was noted to have elevated lactic acid, ESR and CRP. Vitals in ER were stable and was afebrile. On further questioning, he said his symptom of mild cough and subjective fever has been going on for about 3 days. Denied dysuria, diarrhea, chest pain or SOB. His who was at bedside reported mild URI symptoms a week ago. Pt stated that he only has mild pain on his left leg occasionally and for most part, he feels no pain. PMH/Family/Social Past Medical History Medical History: diabetes, high cholesterol, hypertension Social History Alcohol Use: none Smoking Status: Never smoker Drug Use: none Exam/Review of Systems Vital Signs Vitals Vital Signs Date Time Temp Pulse Resp B/P Pulse Ox O2 Delivery O2 Flow Rate FiO2 12/24/16 21:26 97.7 91 18 136/78 99 12/24/16 20:27 Room Air Exam Constitutional: alert, oriented, well developed Head: atraumatic, normocephalic Eyes: EOMI Neck: supple Respiratory: clear to auscultation, normal air movement Cardiovascular: nl pulses, regular rate and rhythm Gastrointestinal: non-tender, soft Extremities: other (left lower ext covered) Labs Result Diagram: 12/24/160 12/24/16 190 Medications Medications Current Medications Cefepime HCl (Maxipime 1gm/50 ml (Pmx)) 50 ml @ 100 mls/hr Q12 IVPB ; Start 07/02 at 22:30; Status UNV Acetaminophen (Tylenol Tab) 650 mg Q6H PRN PO PAIN AND OR ELEVATED TEMP; Start 12/24/16 at 22:30 Ondansetron HCl (Zofran Inj) 4 mg Q6H PRN IV NAUSEA AND/OR VOMITING; Start 07/02 at 22:30 Diagnostic Test (Pha) (Accu-Chek) 1 ea 02 XX ; Start 12/25/16 at 02:00 Aspirin (Halfprin) 81 mg DAILY PO ; Start 12/25/16 at 09:00 Atorvastatin Calcium (Lipitor) 40 mg QHS PO ; Start 12/25/16 at 21:00 Pregabalin (Lyrica) 50 mg BID PO ; Start 12/24/16 at 23:00; Status UNV Rivaroxaban (Xarelto) 10 mg DAILY PO ; Start 12/25/16 at 09:00 Miscellaneous Information 400 mg DAILY PO ; Start 12/25/16 at 09:00; Status UNV Miscellaneous Information 1 tab DAILY PO ; Start 12/25/16 at 09:00; Status UNV Miscellaneous Information 1 ea NOTE XX ; Start 12/24/16 at 23:00 Glucose (Glutose) 15 gm Q15M PRN PO DECREASED GLUCOSE; Start 12/24/16 at 23:00 Glucose (Glutose) 22.5 gm Q15M PRN PO DECREASED GLUCOSE; Start 12/24/16 at 23: 00 Dextrose (D50w Syringe) 25 ml Q15M PRN IV DECREASED GLUCOSE; Start 12/24/16 at 23:00 Dextrose (D50w Syringe) 50 ml Q15M PRN IV DECREASED GLUCOSE; Start 12/24/16 at 23:00 Glucagon (Glucagen) 1 mg Q15M PRN IM DECREASED GLUCOSE; Start 12/24/16 at 23:00 Glucose (Glutose) 15 gm Q15M PRN BUCCAL DECREASED GLUCOSE; Start 12/24/16 at 23 :00 Vitamin B Complex/ Vitamin C (Berocca) 1 cap DAILY PO ; Start 12/25/16 at 09:00 Linagliptin (Tradjenta) 5 mg DAILY PO ; Start 12/25/16 at 09:00 YOJANA FERRIS MD Dec 24, 2016 23:06
[2016-12-24 23:12] LABS: ADD UMIC NO; URINE BILIRUBIN (Dip) NEGATIVE (NEGATIVE); URINE BLOOD (Dip) NEGATIVE (NEGATIVE); URINE COLOR LT. YELLOW (YELLOW); URINE GLUCOSE (Dip) NEGATIVE (NEGATIVE); URINE KETONES (Dip) NEGATIVE (NEGATIVE); URINE LEUKOCYTE ESTERASE (Dip) NEGATIVE (NEGATIVE); URINE NITRITE (Dip) NEGATIVE (NEGATIVE); URINE TOTAL PROTEIN (Dip) NEGATIVE (NEGATIVE); URINE UROBILINOGEN (Dip) 0.2 E.U./dL (0.1-1.0)
[2016-12-25] MEDS ORDERED: ZOLPIDEM 5 MG TAB PO PRN
[2016-12-25] MEDS ORDERED: ACCU-CHEK XX SCH (02:00)
[2016-12-25 05:40] LABS: ADD SCAN DIFF NO
[2016-12-25 05:43] LABS: BASOPHILS % 0.5 % (0.0-2.0); EOSINOPHILS # 0.5 10^3/ul (0.0-0.5); HEMATOCRIT 29.2 % (42.0-52.0); HEMOGLOBIN 9.2 g/dl (14.0-18.0); LYMPHOCYTES # 1.4 10^3/ul (0.8-2.9); MEAN CORPUSCULAR HEMOGLOBIN 26.3 pg (29.0-33.0); MEAN CORPUSCULAR HGB CONC 31.5 g/dl (32.0-37.0); MEAN CORPUSCULAR VOLUME 83.4 fl (82.0-101.0); MEAN PLATELET VOLUME 9.7 fl (7.4-10.4); MONOCYTE # 0.7 10^3/ul (0.3-0.9); MONOCYTES % 10.8 % (0.0-11.0); NEUTROPHIL # 3.6 10^3/ul (1.6-7.5); NEUTROPHILS % 58.2 % (39.0-77.0); PLATELET COUNT 258 10^3/UL (140-415); RED CELL DISTRIBUTION WIDTH 14.2 % (11.5-14.5); WHITE BLOOD COUNT 6.1 10^3/ul (4.8-10.8)
[2016-12-25 06:02] LABS: ALBUMIN 3.1 g/dl (3.3-4.9)
[2016-12-25 06:03] LABS: POTASSIUM 4.7 mmol/L (3.5-5.1)
[2016-12-25 06:05] LABS: ALBUMIN/GLOBULIN RATIO 0.88; BILIRUBIN,INDIRECT 0.4 mg/dl (0-1.1); BILIRUBIN,TOTAL 0.4 mg/dl (0.2-1.3); CREATININE 1.75 mg/dl (0.61-1.24); TOTAL PROTEIN 6.6 g/dl (6.1-8.1)
[2016-12-25 06:06] LABS: CALCIUM 9.1 mg/dl (8.4-10.2); MAGNESIUM 1.6 mg/dl (1.7-2.5); PHOSPHORUS 4.4 mg/dl (2.5-4.9)
[2016-12-25 07:37] VITALS: BP 143/81; RESP 22
[2016-12-25] MEDS: INSULIN ASPART [NOVOLOG] 3 ML PEN SC SCH ×2 (08:25→11:49)
[2016-12-25] MEDS: PREGABALIN 25 MG CAP PO SCH ×2 (08:33)
[2016-12-25] MEDS ORDERED: VITAMIN B COMPLEX/VIT C CAP PO SCH (09:00)
[2016-12-25] MEDS ORDERED: LOSARTAN 50 MG TAB PO SCH (09:00)
[2016-12-25] MEDS ORDERED: NON-FORMULARY/PATIENT OWN MED (Sitagliptin* (Januvia*) 100 MG) PO SCH (09:00)
[2016-12-25] MEDS ORDERED: LINAGLIPTIN 5 MG TABLET PO SCH (09:00)
[2016-12-25] MEDS ORDERED: PREGABALIN 50 MG CAP PO SCH (09:00)
[2016-12-25] MEDS ORDERED: ALPHA LIPOIC ACID PO SCH (09:00)
[2016-12-25] MEDS ORDERED: VITAMIN B COMPLEX PO SCH (09:00)
[2016-12-25] MEDS ORDERED: VANCOMYCIN 1.5 GM in SOD CHLORIDE 0.9% 250 ML IVPB SCH (09:00)
[2016-12-25] MEDS ORDERED: NON-FORMULARY/PATIENT OWN MED (Losartan-Hydrochlorothiazide (Losartan-HCTZ) 1 TAB) PO SCH (09:00)
[2016-12-25] MEDS ORDERED: RIVAROXABAN 10 MG TABLET PO SCH (09:00)
[2016-12-25] MEDS ORDERED: HYDROCHLOROTHIAZIDE 12.5 MG CAP PO SCH (09:00)
[2016-12-25] MEDS ORDERED: ASPIRIN (EC) 81 MG TAB PO SCH (09:00)
--- NOTE | 2016-12-25 12:38 | PDOCDIS ---
Discharge Instructions CONDITION Patient Condition: Good HOME CARE INSTRUCTIONS: Diet Instructions: Regular ACTIVITY: Activity Restrictions: Special Exercises FOLLOW UP/APPOINTMENTS Appointments follow up with ortho in one week OSCAR POLLARD MD Dec 25, 2016 12:38
[2016-12-25] MEDS ORDERED: AZIT250T6 PO (12:40)
--- NOTE | 2016-12-25 13:09 | CONS ---
DATE OF ADMISSION: 12/24/2016 DATE OF CONSULTATION: 12/25/2016 TYPE OF CONSULTATION: Infectious Disease. REASON FOR CONSULTATION: Antibiotic management. HISTORY OF PRESENT ILLNESS: Leland Kidd is a 61-year-old male with a number of problems w martin comes in with probable URI and is being seen for antibiotic management. His problems include: 1. Hypertension. 2. Adult-onset diabetes. 3. Elective surgery, left ankle 1 week ago. 4. Hypercholesterolemia. Acutely, the patient was sent in because of subjective fevers, chest congestion and mild cough. He was noted to have elevated lactic acid, the ESR and CRP. In the emergency room, his vital signs wer e stable. He only had mild pain on the left leg and for the most part he feels no pain. PAST MEDICAL HISTORY: Operations as outlined. FAMILY HISTORY: Noncontributory. SOCIAL HISTORY: Does not smoke, drink or abuse drugs. ALLERGIES: HE IS ALLERGIC TO MULTIPLE MEDICATIONS INCLUDING PENICILLIN, AMOXICILLIN, AMPICILLIN, BA CITRACIN, KEFLEX AND NUMEROUS OTHER MEDICINES INCLUDING BEE STINGS. MEDICATIONS: Per chart. REVIEW OF SYSTEMS: As per HPI. PHYSICAL EXAMINATION: GENERAL: The patient is a well-developed, well-nourished male who is alert, responsive, in no acute distress. VITAL SIGNS: Stable. He is afebrile. SKIN: Without generalized rash. HEENT: Within normal limits. NECK: Supple. LYMPH NODES: None palpable. CHEST: Decreased breath sounds at the bases. HEART: Without murmur or gallop. ABDOMEN: Soft, nontender, without organosplenomegaly or masses. EXTREMITIES: Without cyanosis, clubbing, or edema. RECTAL AND GENITAL: Exam deferred. NEUROLOGIC: No focal neurological abnormalities. ANCILLARY LABORATORY DATA: White count was 7.7, H and H 9.8 and 29.4, platelet count 283,000. BUN and creatinine 30/1.83. MICROBIOLOGY: Urine cultures negative. His studies for influenza A and B are negative. The patien t was started on vancomycin and cefepime. He also received some aztreonam. I believe he is current ly on vancomycin and cefepime, though he may be on vancomycin alone at this point. His blood cultur es so far are pending. PLAN: I will dictate my findings to the hospitalist. The patient may just having an upper respirat ory tract infection since his chest x-ray, urine cultures are negative. Dictated By: SHAMIKA MURCIA MD, JD/GEOVANI Conf#: [id number] DID#: [id number]
[2016-12-25] MEDS ORDERED: MAGNESIUM OXIDE 400 MG TAB PO ONE (14:00)
--- NOTE | 2016-12-25 14:18 | DS ---
DATE OF ADMISSION: 12/24/2016 DATE OF DISCHARGE: 12/25/2016 PHYSICAL THERAPY NURSE: Dr. Jeff Valladares DIAGNOSES: 1. Upper respiratory tract infection, possibly viral. 2. Recent foot surgery. 4. Diabetes mellitus. 5. Hypertension. 6. Lactic acidosis, resolved. MEDICATIONS: 1. Alpha lipoic acid. 2. Aspirin. 3. Lipitor. 4. Azithromycin. 5. Hydrochlorothiazide and Losartan. 6. Metformin. 7. Lyrica. 8. Xarelto. 9. Januvia. 10. Multiple vitamin B complex. ALLERGIES: 1. BEE STINGS. 2. PENICILLIN. 3. AMOXICILLIN. 4. AMPICILLIN. 5. BACITRACIN. 6. KEFLEX. 7. ____. 8. GABAPENTIN. 9. GRISEOFULVIN. 10. NEOMYCIN. 11. PHENOBARBITAL. 12. POLYMYXIN B. DISPOSITION: Home. FOLLOWUP: Follow up with Dr. Jeff Valladares as outpatient. LABORATORIES: Today: WBC 6.1, hemoglobin 9.2, hematocrit 29.2, platelets 258. Sodium 141, potassi um 4.7, chloride 105, bicarbonate 25, BUN 26, creatinine 1.75, glucose 147. Hemoglobin A1c of 7.2. Lactic acid 1.6. LFTs all within normal limits. Magnesium 1.6, albumin 3.1. Urinalysis negative. Influenza A and B negative. HOSPITAL COURSE: This is a pleasant 61-year-old gentleman with a past medical history of hypertensi on, diabetes mellitus, obesity, multiple allergies who had elective left ankle surgery about a week ago and was sent to ER by orthopedic clinic secondary to evaluation of subjective fever, chest conge stion, mild cough, and lethargy. In the ER, the patient noted to have elevated lactic acid, ESR, an d CRP. The patient's vitals were stable, and he was found to be afebrile. The patient stated that his fever has been going on for about 3 days off and on. He has not had any recent travel history. No sick contact or any other discomfort. Upon evaluation in the ER, the patient was found to be af ebrile, vitals were stable. He was treated with vancomycin, normal saline, Tylenol, ____. He was a dmitted to med/surg. He was seen and evaluated by Dr. Valladares, and his chest x-ray did not show any evidence of pneumonia. Urinalysis negative. His lactic acid is starting to improve significantly. At this time, the patient denies having any chest pain, shortness of breath, nausea, vomiting, diar jah. No lethargy. His symptoms have resolved completely. He is clear as per surgical standpoint and medical standpoint to be discharged home with a close followup with his primary care physician a nd orthopedic surgeon as outpatient. His magnesium will be repleted prior to discharge. Dictated By: OSCAR POLLARD MD PN/NTS Conf#: [id number] DID#: [id number]
[2016-12-25] MEDS ORDERED: ATORVASTATIN 40 MG TAB PO SCH (21:00)
--- NOTE | 2016-12-26 13:21 | PN ---
Date/Time of Note Date/Time of Note DATE: 12/25/16 TIME: 12:20 Assessment/Plan Lines/Catheters IV Catheter Type (from [facility]): Saline Lock Assessment/Plan Chief Complaint/Hosp Course Patient is a 61-year-old gentleman with history of diabetes type 2 and Charcot arthropathy now 1 week status post left foot calcaneus and talonavicular joint arthrodesis and cuboid open reduction and internal fixation. He presented to my office today with 2 days of low grade fever and decreased appetite with general malaise along with chest congestion. My concern was for possible pneumonia or flu given his symptoms. His left wound appeared swollen but there is no drainage warmth or erythema Problems: Assessment/Plan POD# 7 s/p left foot TN and CC joint arthrodesis with allograft and autograft, ORIF of cuboid. Concern for flu or pneumonia vs URI. Flu cx neg - NWB to the LLE - Broad Spectrum Abx to be swithced to azitrhomycin - Blood cultures NGTF - dressing change today to ACell porcine dressing to the skin with Prevena incisional wound vac to the medial incision - dc home today and f/u with me on 12/28 ---- Eleno Granda MD Subjective 24 Hr Interval Summary Doing much better today he states. He denies any f/c/n/v Constitutional: no complaints Feeding: advancing diet Pain Control: well controlled Exam/Review of Systems Vital Signs Vitals Vital Signs Date Time Temp Pulse Resp B/P Pulse Ox O2 Delivery O2 Flow Rate FiO2 12/25/16 07:37 97.5 90 22 143/81 98 12/24/16 20:27 Room Air Exam Constitutional: alert, oriented, well developed Musculoskeletal: nl extremities to inspection, nl gait and stance, other (LLE/ swelling and erythema significnatly decreaed. no drainage. toes and ankle df/pf intact,) Results Result Diagram: 12/25/1651012/25/16510 RICHIE GRANDA MD Dec 26, 2016 13:21
== END 2016-12-25 14:40 | disposition home or self-care (01) | DRG 153 ==
LOC: E/R 15:40 → MS2 18:22
PROVIDERS: ADMIT Internal Medicine; ATTEND Internal Medicine
DX: J06.9 Acute upper respiratory infection, unspecified (principal); E87.2 Acidosis; I10 Essential (primary) hypertension; E11.9 Type 2 diabetes mellitus without complications; Z98.890 Other specified postprocedural states; E78.00 Pure hypercholesterolemia, unspecified; E66.9 Obesity, unspecified; Z68.32 Body mass index [BMI] 32.0-32.9, adult
CPT/HCPCS: 36415; 71010; 80053; 81003; 82962; 83036; 83605; 83735; 84100; 84484; 85025; 85610; 85651; 85730; 86140; 87040; 87086; 87400; 93005; 96365; 96375; J1815; J3370; J7030; J7050

== ENCOUNTER 2017-02-13 19:11 | Inpatient (IN) | payer OTHER ==
[~2017-02-13] VITALS: Ht 175.3 cm; Wt 106.0 kg
[2017-02-13] VITALS (10 sets, daily range): BP systolic 130–146; BP diastolic 78–90; PULSE 80–94; RESP 15–20; Ht 175.3 cm; Wt 106.0 kg
[~2017-02-13 19:11] MED LIST changes: +ALPH200T2 PO; +AZIT250T6 PO; -METF1000 PO; +METF500T4 PO; +RIVA10TA PO; -TAMS-14 PO; +VITA1CAP PO
[2017-02-13] MEDS ORDERED: SOD CHLORIDE 0.9% 1,000 ML IV STA (19:23)
[2017-02-13 19:59] LABS: ADD SCAN DIFF NO
[2017-02-13] MEDS ORDERED: LORAZEPAM 2 MG INJ IV ONE (20:00)
[2017-02-13] MEDS ORDERED: ONDANSETRON 4 MG INJ IV PRN (20:00)
[2017-02-13] MEDS ORDERED: ACETAMINOPHEN 325 MG TAB PO PRN (20:00)
--- NOTE | 2017-02-13 20:03 | RADRPT ---
PROCEDURE: XR Chest. CLINICAL INDICATION: chest pain, abdominal pain TECHNIQUE: Single frontal view of the chest was obtained COMPARISON: None FINDINGS: The heart and mediastinum are within normal limits. The lungs are clear. There is no pleural effusion or pneumothorax. RPTAT: AA IMPRESSION: No acute disease. .Parmjit Lomeli MD, MD Date Time Electronically viewed and signed by .Parmjit Lomeli MD, on 02/13/2017 20:03 .S/
--- NOTE | 2017-02-13 20:13 | RADRPT ---
PROCEDURE: XR Left Foot CLINICAL INDICATION: Charcot TECHNIQUE: AP, oblique, and lateral radiographs were submitted. COMPARISON: Intraoperative study done 12/17/2016 FINDINGS: Osseous structures: Multiple cortical screws again project through the tarsal bones, unchanged. An osteotomy air graft is again seen at the inferior lateral cuboid. There is increased lucency and po or cortical definition involving the articular surfaces of the talonavicular joint and also at the c alcaneal cuboid joint for which osteomyelitis cannot be excluded. Joint spaces: There is a mild rocker bottom configuration to the foot. The tarsal navicular and mor e distal tarsal bones appear to be is mildly subluxed medially relative to the calcaneus and talus. Soft tissues: There is diffuse soft tissue swelling with vague calcification seen in the soft tissue s. IMPRESSION: 1. No change to the multiple cortical screws been seen to the tarsal bones when compared to the pre vious intraoperative study. 2. There is increased lucency and poor cortical definition about the talonavicular and calcaneal cu boid joints. The possibility of osteomyelitis cannot be excluded. 3. There is an osteotomy nerve graft again seen at the lateral inferior cuboid. 4. Mild medial subluxation of the tarsal navicular more distal tarsal bones relative to the calcane us and talus. 4. Mild rocker bottom configuration to the foot. 5. Diffuse soft tissue swelling with calcification seen in the soft tissues. Physician Neftaly Date Time Electronically viewed and signed by Physician Neftaly on 02/13/2017 20:13 /
[2017-02-13 20:14] LABS: BASOPHIL # 0.1 10^3/ul (0.0-0.1); BASOPHILS % 0.7 % (0.0-2.0); EOSINOPHILS # 0.5 10^3/ul (0.0-0.5); EOSINOPHILS % 6.2 % (0.0-7.0); HEMATOCRIT 37.9 % (42.0-52.0); HEMOGLOBIN 12.2 g/dl (14.0-18.0); LYMPHOCYTES # 2.6 10^3/ul (0.8-2.9); LYMPHOCYTES % 36.2 % (15.0-51.0); MEAN CORPUSCULAR HEMOGLOBIN 26.2 pg (29.0-33.0); MEAN CORPUSCULAR HGB CONC 32.2 g/dl (32.0-37.0); MEAN CORPUSCULAR VOLUME 81.5 fl (82.0-101.0); MEAN PLATELET VOLUME 10.9 fl (7.4-10.4); MONOCYTE # 0.6 10^3/ul (0.3-0.9); MONOCYTES % 8.7 % (0.0-11.0); NEUTROPHIL # 3.5 10^3/ul (1.6-7.5); NEUTROPHILS % 47.6 % (39.0-77.0); PLATELET COUNT 235 10^3/UL (140-415); RED BLOOD COUNT 4.65 10^6/ul (4.70-6.10); RED CELL DISTRIBUTION WIDTH 15.2 % (11.5-14.5); WHITE BLOOD COUNT 7.3 10^3/ul (4.8-10.8)
--- NOTE | 2017-02-13 20:15 | RADRPT ---
PROCEDURE: XR Left Ankle CLINICAL INDICATION: Charcot TECHNIQUE: Standard 3 view radiographs were submitted. COMPARISON: None FINDINGS: Osseous structures: Multiple cortical screws are seen within the tarsal bones. There is an osteotom y or possibly a nonunited graft involving the inferior lateral cuboid. The osseous elements about t he ankle appear intact. Joint spaces: The ankle mortise is anatomically maintained. Soft tissues: There is diffuse soft tissue swelling and small calcifications are seen in the soft ti ssues. IMPRESSION: 1. Multiple cortical screws are seen within the tarsal bones and there is either an osteotomy or a bone graft seen at the inferior lateral cuboid. 2. The ankle mortise is anatomically maintained. 3. Diffuse soft tissue swelling seen primarily about the tarsal regions with several small calcific ations seen in the soft tissues. Physician Neftaly Date Time Electronically viewed and signed by Physician Neftaly on 02/13/2017 20:15 /
[2017-02-13] MEDS ORDERED: POLYMYXIN/BACITRACIN 1L IRRIG ONE (20:17)
[2017-02-13 20:18] LABS: INR 0.92; PROTIME 12.4 Sec (12.2-14.2)
[2017-02-13 20:19] LABS: PARTIAL THROMBOPLASTIN TIME 27.3 Sec (25.0-35.0)
[2017-02-13 20:24] LABS: ANION GAP 12 (8-16); BLOOD UREA NITROGEN 27 mg/dl (7-20); CALCIUM 10.2 mg/dl (8.4-10.2); CARBON DIOXIDE 28 mmol/L (21-31); CHLORIDE 105 mmol/L (97-110); CREATININE 1.67 mg/dl (0.61-1.24); GLUCOSE 159 mg/dl (70-220); POTASSIUM 4.4 mmol/L (3.5-5.1); SODIUM 141 mmol/L (135-144)
[2017-02-13 20:25] LABS: C-REACTIVE PROTEIN < 0.5 mg/dl (0.0-0.9)
[2017-02-13 20:36] LABS: TROPONIN-I < 0.012 ng/ml (0.00-0.12)
--- NOTE | 2017-02-13 20:44 | ERA ---
ER Documentation Chief Complaint Date/Time DATE: 02/13/17 TIME: 20:40 Chief Complaint sp left foot surgery, surgical screw is getting of from the post op site HPI Patient is a 61-year-old male with hypertension and diabetes who presents for exposed screw to the left foot. The patient was sent by Dr. Valladares as he plans to take him to the operating room tonight at approximately 8 PM. He is Lamin on the operating room schedule. He was at the child specialist today who noticed that the screw was poking out of the skin. The says that yesterday when she change the dressing it was not like that. ROS All systems reviewed and are negative except as per history of present illness. Medications Home Meds Active Scripts Azithromycin* (Azithromycin*) 250 Mg Tablet, 250 MG PO DAILY, #6 TAB Prov:OSCAR POLLARD MD 12/25/16 Pregabalin* (Lyrica*) 50 Mg Capsule, 50 MG PO BID for 30 Days, CAP reduced to BID due to renal function Prov:PAULINE OLIVEROS 12/18/16 Reported Medications Rivaroxaban* (Xarelto*) 10 Mg Tablet, 10 MG PO DAILY, TAB 12/24/16 Vitamin B Complex (Vitamin B Complex) 1 Each Capsule, 1 EACH PO DAILY, CAP 12/24/16 Alpha Lipoic Acid (Alpha Lipoic Acid) 200 Mg Tablet, 400 MG PO DAILY, TAB 12/24/16 Metformin Hcl* (Metformin Hcl*) 500 Mg Tablet, 1000 MG PO WITH BREAKFAST DINNE, #60 TAB 12/24/16 Sitagliptin* (Januvia*) 100 Mg Tablet, 100 MG PO DAILY, #30 TAB 12/17/16 Losartan-Hydrochlorothiazide (Losartan-HCTZ) 100-12.5 Mg Tab, 1 TAB PO DAILY, TAB 12/17/16 Atorvastatin* (Atorvastatin*) 40 Mg Tablet, 40 MG PO QHS, #30 TAB 12/17/16 Aspirin* (Aspirin* EC) 81 Mg Tablet., 81 MG PO DAILY, TAB 12/17/16 Allergies Allergies: Coded Allergies: Penicillins (Verified Allergy, Severe, ANAPHALACTIC SHOCK, 12/24/16) cephalexin (Verified Allergy, Severe, SEVERE HIVES AND SOB, 12/24/16) enalaprilat (Verified Allergy, Severe, ANGIOEDEMA, 12/24/16) griseofulvin (Verified Allergy, Intermediate, HIVES, 12/24/16) phenobarbital (Verified Allergy, Intermediate, 12/24/16) bacitracin (Verified Allergy, Unknown, 12/24/16) gabapentin (Verified Allergy, Unknown, 12/24/16) neomycin (Verified Allergy, Unknown, 12/24/16) polymyxin B (Verified Allergy, Unknown, 12/24/16) Uncoded Allergies: BEE STING (Allergy, Severe, ANAPHALACTIC SHOCK, 12/14/16) PMhx/Soc History of Surgery: Yes (Left foot 1 week ago, left big toe 2 yrs ago, left arm Sx, Left leg) Anesthesia Reaction: No Hx Neurological Disorder: No Hx Respiratory Disorders: No Hx Cardiac Disorders: Yes (HTN ) Hx Psychiatric Problems: No Hx Miscellaneous Medical Probl: Yes (High Cholesterol, diabetes) Hx Alcohol Use: No Hx Substance Use: No Hx Tobacco Use: No Smoking Status: Never smoker FmHx Family History: No diabetes Physical Exam Vitals Vital Signs Date Time Temp Pulse Resp B/P Pulse Ox O2 Delivery O2 Flow Rate FiO2 02/13/17 19:15 98.3 93 20 123/77 98 Physical Exam Const: No acute distress Head: Atraumatic Eyes: Normal Conjunctiva ENT: Normal External Ears, Nose and Mouth. Neck: Full range of motion..~ No meningismus. Resp: Clear to auscultation bilaterally Cardio: Regular rate and rhythm, no murmurs Abd: Soft, non tender, non distended. Normal bowel sounds Skin: Left lower extremity over the left ankle and foot is wrapped with a dressing Back: No midline or flank tenderness Ext: No cyanosis, or edema Neur: Awake and alert Psych: Normal Mood and Affect Result Diagram: 02/13/17193702/13/171937 Results 24 hrs Laboratory Tests Test 02/13/17 19:38 White Blood Count 7.310^3/ul Red Blood Count 4.6510^6/ul Hemoglobin 12.2g/dl Hematocrit 37.9% Mean Corpuscular Volume 81.5fl Mean Corpuscular Hemoglobin 26.2pg Mean Corpuscular Hemoglobin Concent 32.2g/dl Red Cell Distribution Width 15.2% Platelet Count 48866^3/UL Mean Platelet Volume 10.9fl Neutrophils % 47.6% Lymphocytes % 36.2% Monocytes % 8.7% Eosinophils % 6.2% Basophils % 0.7% Nucleated Red Blood Cells % 0.0/100WBC Neutrophils # 3.510^3/ul Lymphocytes # 2.610^3/ul Monocytes # 0.610^3/ul Eosinophils # 0.510^3/ul Basophils # 0.110^3/ul Nucleated Red Blood Cells # 0.010^3/ul Prothrombin Time Pending Prothrombin Time Ratio 1.0 INR International Normalized Ratio 0.92 Activated Partial Thromboplast Time 27.3Sec Sodium Level 141mmol/L Potassium Level 4.4mmol/L Chloride Level 105mmol/L Carbon Dioxide Level 28mmol/L Anion Gap 12 Blood Urea Nitrogen 27mg/dl Creatinine 1.67mg/dl Glucose Level 159mg/dl Hemoglobin A1c 7.2% Calcium Level 10.2mg/dl Troponin I < 0.012ng/ml C-Reactive Protein < 0.5mg/dl Current Medications Medications (Trade) Dose Ordered Sig/Joaquina Route PRN Reason Start Time Stop Time Status Last Admin Dose Admin Sodium Chloride (NS) 1,000 ml @ 1,000 mls/hr Q1H STAT IV 02/13/17 19:23 02/13/17 20:22 DC 02/13/17 20:04 Procedures/MDM PROCEDURE: XR Left Foot CLINICAL INDICATION: Charcot TECHNIQUE: AP, oblique, and lateral radiographs were submitted. COMPARISON: Intraoperative study done 12/17/2016 FINDINGS: Osseous structures: Multiple cortical screws again project through the tarsal bones, unchanged. An osteotomy air graft is again seen at the inferior lateral cuboid. There is increased lucency and poor cortical definition involving the articular surfaces of the talonavicular joint and also at the calcaneal cuboid joint for which osteomyelitis cannot be excluded. Joint spaces: There is a mild rocker bottom configuration to the foot. The tarsal navicular and more distal tarsal bones appear to be is mildly subluxed medially relative to the calcaneus and talus. Soft tissues: There is diffuse soft tissue swelling with vague calcification seen in the soft tissues. IMPRESSION: 1. No change to the multiple cortical screws been seen to the tarsal bones when compared to the previous intraoperative study. 2. There is increased lucency and poor cortical definition about the talonavicular and calcaneal cuboid joints. The possibility of osteomyelitis cannot be excluded. 3. There is an osteotomy nerve graft again seen at the lateral inferior cuboid. 4. Mild medial subluxation of the tarsal navicular more distal tarsal bones relative to the calcaneus and talus. 4. Mild rocker bottom configuration to the foot. 5. Diffuse soft tissue swelling with calcification seen in the soft tissues. Physician Neftaly Date Time Electronically viewed and signed by Physician Neftaly on 02/13/2017 20:13 PROCEDURE: XR Left Ankle CLINICAL INDICATION: Charcot TECHNIQUE: Standard 3 view radiographs were submitted. COMPARISON: None FINDINGS: Osseous structures: Multiple cortical screws are seen within the tarsal bones. There is an osteotomy or possibly a nonunited graft involving the inferior lateral cuboid. The osseous elements about the ankle appear intact. Joint spaces: The ankle mortise is anatomically maintained. Soft tissues: There is diffuse soft tissue swelling and small calcifications are seen in the soft tissues. IMPRESSION: 1. Multiple cortical screws are seen within the tarsal bones and there is either an osteotomy or a bone graft seen at the inferior lateral cuboid. 2. The ankle mortise is anatomically maintained. 3. Diffuse soft tissue swelling seen primarily about the tarsal regions with several small calcifications seen in the soft tissues. Physician Neftaly Date Time Electronically viewed and signed by Physician Neftaly on 02/13/2017 20:15 Chest x-ray negative per radiology. EKG read by me: Rate/Rhythm: Regular rate and rhythm at a normal rate Intervals: Normal Impression: No evidence of ischemia or arrhythmia Patient is a 61-year-old male with diabetes and hypertension who presents with a screw protruding from his left ankle. The patient will be going to the operating room tonight with Dr. Valladares. The patient will be admitted to a medical surgical bed under the care of Dr. Avendano. Departure Diagnosis: Primary Impression: Charcot ankle Qualified Code: M14.672 - Charcot ankle, left Condition: LIZABETH Curtis MD February 13, 2017 20:44
[2017-02-13] MEDS ORDERED: POLYMYXIN B 500000 UNIT INJ ONE (21:27)
[2017-02-13] MEDS ORDERED: OXYCODONE/ACETAMINOPHEN (10/325) TAB PO PRN (21:30)
[2017-02-13] MEDS ORDERED: PROPOFOL 20 ML ONE (21:43)
[2017-02-13] MEDS ORDERED: LIDOCAINE 1% (MDV) 20 ML INJ ONE (21:43)
[2017-02-13] MEDS ORDERED: FAMOTIDINE 20 MG INJ ONE (21:53)
[2017-02-13] MEDS ORDERED: METOCLOPRAMIDE 10 MG INJ ONE (21:53)
[2017-02-13] MEDS ORDERED: ONDANSETRON 4 MG INJ ONE (21:53)
[2017-02-13] MEDS ORDERED: ERGOCALCIFEROL 50,000 UNIT CAP PO ONE (22:00)
[2017-02-13] MEDS ORDERED: PHENYLephrine (100 MCG/ML) 5ML SYG ONE (22:01)
[2017-02-13] MEDS ORDERED: EPHEDrine SULFATE 50 MG/5 ML SYG ONE (22:13)
[2017-02-13] MEDS ORDERED: VANCOMYCIN 1 GM INJ ONE (22:24)
[2017-02-13] MEDS ORDERED: VANCOMYCIN IV PER PHARMACY XX SCH (23:30)
[2017-02-13] MEDS ORDERED: HYDROmorphONE (0.2 MG/ML) 10ML SYG IV PRN ×2 (23:30)
--- NOTE | 2017-02-13 23:36 | OPR ---
Date/Time of Note Date/Time of Note DATE: 02/13/17 TIME: 23:35 Operative Report Procedure Date: February 13, 2017 Preoperative Diagnosis Left foot hardware failure Left foot Charcot neuropathy Postoperative Diagnosis Left foot hardware failure Left foot Charcot neuropathy Operation Performed Left foot irrigation debridement Left foot hardware removal Surgeon: RICHIE GRANDA MD Anesthesia: general, other Anesthesiologist: JORDON GUZMAN DO Tourniquet Time: None Estimated Blood Loss: minimal Specimens 2 screws with 1 compression plate 3 culture swabs from the deep screw holes as well as the deep wound Complications: None Pt Condition Post Procedure: stable Disposition: PACU Indications Patient is a 61-year-old gentleman who is 8 weeks status post a left cuboid fracture open reduction internal fixation as well as a calcaneal cuboid and talonavicular joint arthrodesis. Patient has a history of Charcot neuropathy with diabetes mellitus. He has been doing well over the past 8 weeks with improving wound over the lateral aspect of his foot that is being treated by wound care. Patient reports today when going to the wound care clinic it was noticed that there was a visible screw head at the wound site. Patient was indicated for hardware removal with irrigation and debridement. Operative\Procedure Findings Risk note: Patient was explained the risks and benefits of surgery and the patient's [place] language including not limited to infection, bleeding, anesthesia risk, injury to blood vessels and nerves ligaments or tendons, risk of need for future surgery. Patient acknowledging these risk by signing surgical consent form. Procedure Description Patient was met in the preoperative holding area and operative consent was confirmed with both patient and family and operative site was confirmed and marked the preoperative holding area. Patient was then brought back in the operative theater. Patient was then prepped and draped in the normal sterile fashion. A timeout was taken and all parties in the room agreed is correct patient, extremity and procedure. C-arm was brought in and confirmed that the most distal calcaneal cuboid screw site had backed out the screw was easily removed his was not found to be secure in the bone. The second and more proximal screw was then removed and the plate was then removed. The wound was then cultured 3 and patient was then given vancomycin antibiotics. The wound was then palpated and found to have soft bone at the cuboid. The wound was then irrigated thoroughly with 9 L of normal saline and the bone was curetted. Once the wound was irrigated thoroughly a silver impregnated wound VAC was then placed at the wound site and 125 mmHg low suction was begun shown to have the wound VAC working properly with no leakage. The medial wound was shown to be well-healed and final x-rays showed that the lateral calcaneocuboid plate was removed and the remainder of the hardware appeared intact. All sponge and needle counts were correct. Patient was brought to the PACU in stable condition. Patient will be seen by Dr. Wellington from plastic surgery for possible further flap management. Patient will follow up with Dr. Wellington as well as continue with the wound VAC for the next 4-5 days. RICHIE GRANDA MD February 13, 2017 23:36
[2017-02-14 00:02] VITALS: BP 135/77; PULSE 86; RESP 17
[2017-02-14 00:11] VITALS: BP 141/81; RESP 20
[2017-02-14] MEDS ORDERED: SOD CHLORIDE 0.9% 1,000 ML IV SCH (02:57)
[2017-02-14] MEDS ORDERED: ACETAMINOPHEN 325 MG TAB PO PRN (03:00)
[2017-02-14] MEDS ORDERED: NACL 0.9% 3 ML SYG IV SCH (03:00)
[2017-02-14] MEDS ORDERED: ONDANSETRON 4 MG INJ IV PRN (03:00)
[2017-02-14] MEDS ORDERED: morphine 2 MG INJ IV PRN (03:00)
[2017-02-14] MEDS: DOCUSATE SODIUM 100 MG CAP PO SCH ×2 (03:00→06:14)
--- NOTE | 2017-02-14 03:16 | HP ---
Date/Time of Note Date/Time of Note DATE: 02/14/17 TIME: 03:03 Assessment/Plan VTE Prophylaxis VTE Prophylaxis Intervention: SCD's Lines/Catheters IV Catheter Type (from [facility] Saline Lock Assessment/Plan Chief Complaint/Hosp Course This is a 61-year-old male being admitted to the [facility] for: #1 left foot hardware failure: Patient had a previous procedure performed on his left foot and today at the wound care clinic he was noticed that the screw was sticking out. Patient had surgery for hardware removal and irrigation and debridement of the left foot. At the current time patient is doing well. We will continue gentle IV hydration with fluids. Patient likely can resume his normal diet in the a.m. plastic surgery will be seeing the patient as per Dr. Valladares's documentation for a possible skin flap. Continue wound VAC monitoring. He is on Vanco now as per podiatry accommodations. Patient on xarelto for dvt prophylaxis, will hold for now and resume upon discharge. #2 diabetes mellitus: We will recheck an A1c, put patient on mild insulin sliding scale. #3 hypertension: Continue home blood pressure medication. #4 Renal insufficiency: In December his cr was 1.80, this likely could be chronic in the setting of his htn and diabetes. Will consult nephrology. order U/a. #5 hyperlipidemia: Continue statin #6 DVT and GI prophylaxis: SCDs (holding xarelto), Protonix Further clinical strategy will be implemented as per the clinical course Problems: HPI/ROS Admit Date/Time Admit Date/Time February 13, 2017 at 19:43 Hx of Present Illness Chief complaint: Screw coming out her left foot Patient is a 61-year-old gentleman who was sent in by his performing arts technicians Dr. paulino after patient went to the wound care clinic and was noticed to have a visible screw head coming out of his left foot. He is is 8 weeks status post a left cuboid fracture open reduction internal fixation as well as a calcaneal cuboid and talonavicular joint arthrodesis. Patient has a history of Charcot neuropathy with diabetes mellitus. He has been doing well over the past 8 weeks with improving wound over the lateral aspect of his foot that is being treated by wound care. Patient was seen postop and he states that he is doing well. Currently denies any pain. He is a left lower extremity is in a cast and wrap with a wound VAC in place. Allergies: Bee sting, penicillin, bacitracin, cephalexin, enalaprilat, gabapentin, griseofulvin, neomycin, and phenobarbital, and polymyxin Medications: See KARLEE ROS Const: Negative for fever, chills, weight gain or weight loss, fatigue, or diaphoresis Eyes : No pain discharge or redness or change in visual acuity ENT: No pain, sore throat, congestion, congestion, dysphagia or discharge Respiratory: No shortness of breath, cough, sputum, wheezing, or pleuritic pain Cardiovascular: No chest pain, palpitation, PND, or edema GI : no change in appetite, abdominal pain, nausea, vomiting, diarrhea, constipation, or change in the color his stool Genitourinary: No dysuria, hematuria, flank pain , discharge or CVA tenderness Musculoskeletal: As per HPI Skin: No rash, bruising or hives Neuro: No headache, dizziness, syncope, seizure, focal weakness Endocrine: No polyuria, polydipsia, temperature intolerance Psych: No hallucination, depression, anxiety or suicidal ideation PMH/Family/Social Past Medical History Diabetes mellitus, hypertension, left foot Charcot neuropathy Past Surgical History Left hand surgery, tonsillectomy, left eye surgery, left leg fracture surgery left foot surgery (02/13) Family History Significant Family History: no pertinent family hx Social History Alcohol Use: rarely Smoking Status: Never smoker Drug Use: none Exam/Review of Systems Vital Signs Vitals Vital Signs Date Time Temp Pulse Resp B/P Pulse Ox O2 Delivery O2 Flow Rate FiO2 02/14/17 00:11 97.8 87 20 141/81 95 02/14/17 00:02 Room Air Intake and Output 02/13/17 02/13/17 02/14/17 15:00 23:00 07:00 Intake Total 1100 ml Output Total 10 ml Balance 1090 ml Exam Exam General: Patient is well-developed well-nourished The patient is alert oriented -3 lying comfortably in bed. HEENT: Atraumatic, normocephalic. The pupils are equal, round and reactive. Extraocular motor are intact Neck: Supple with full range of motion. No rigidity or meningismus Chest: Nontender Lungs: Clear to auscultation bilaterally no crackles rales or wheezing Heart: Normal S1-S2, Regular rhythm and rate. No murmur, S3, or S4 Abdomen: Soft , nontender, nondistended , bowel sounds are present. No guarding no rebound tenderness , No masses or organomegaly. No costovertebral temporal angle mass Extremities: Left lower extremity is in a cast and wrapped status post surgery, the wound VAC is draining properly. Neurologic: Normal mental status, speech normal, cranial nerves II through XII are intact, motor and sensory are intact, no focal weakness Labs Result Diagram: 02/13/17193702/13/171937 Medications Medications Current Medications Ascorbic Acid (Vitamin C) 1,000 mg DAILY PO ; Start 02/14/17 at 09:00 Oxycodone/ Acetaminophen 1 tab 1 tab Q4 PRN PO PAIN LEVEL 7-10; Start 02/13/17 at 21:30 Vancomycin HCl/ Sodium Chloride (Vancocin/NS) 250 ml @ 83.333 mls/ hr Q24H IVPB ; Start 02/14/17 at 10:30 Acetaminophen (Tylenol Tab) 650 mg Q6H PRN PO PAIN LEVEL 1-3 OR FEVER; Start at 03:00; Status CLAIRE CLUP Feb 14, 2017 03:14
[2017-02-14 05:10] LABS: ADD SCAN DIFF NO
[2017-02-14 05:11] LABS: BASOPHILS % 0.5 % (0.0-2.0); EOSINOPHILS # 0.3 10^3/ul (0.0-0.5); EOSINOPHILS % 5.7 % (0.0-7.0); HEMOGLOBIN 10.3 g/dl (14.0-18.0); LYMPHOCYTES % 33.2 % (15.0-51.0); MEAN CORPUSCULAR HEMOGLOBIN 26.4 pg (29.0-33.0); MEAN CORPUSCULAR HGB CONC 32.2 g/dl (32.0-37.0); MEAN CORPUSCULAR VOLUME 82.1 fl (82.0-101.0); MEAN PLATELET VOLUME 11.2 fl (7.4-10.4); MONOCYTE # 0.5 10^3/ul (0.3-0.9); MONOCYTES % 9.1 % (0.0-11.0); NEUTROPHILS % 51.2 % (39.0-77.0); PLATELET COUNT 158 10^3/UL (140-415); RED CELL DISTRIBUTION WIDTH 15.6 % (11.5-14.5); WHITE BLOOD COUNT 5.9 10^3/ul (4.8-10.8)
[2017-02-14 05:36] LABS: ALBUMIN 4.1 g/dl (3.3-4.9); ALBUMIN/GLOBULIN RATIO 1.57; BILIRUBIN,INDIRECT 0.1 mg/dl (0-1.1); BILIRUBIN,TOTAL 0.1 mg/dl (0.2-1.3); CALCIUM 9.2 mg/dl (8.4-10.2); CHOL/HDL RATIO 3.8 RATIO; CREATININE 1.5 mg/dl (0.61-1.24); MAGNESIUM 1.7 mg/dl (1.7-2.5); PHOSPHORUS 4.6 mg/dl (2.5-4.9); POTASSIUM 4.3 mmol/L (3.5-5.1); TOTAL PROTEIN 6.7 g/dl (6.1-8.1)
[2017-02-14] MEDS ORDERED: PANTOPRAZOLE 40 MG INJ IV SCH (06:00)
[2017-02-14 06:05] LABS: THYROID STIMULATING HORMONE 4.52 MIU/L (0.465-4.680)
[2017-02-14 08:32] VITALS: BP 126/75; RESP 18
[2017-02-14] MEDS ORDERED: ASPIRIN (EC) 81 MG TAB PO SCH (09:00)
[2017-02-14] MEDS ORDERED: LOSARTAN 50 MG TAB PO SCH (09:00)
[2017-02-14] MEDS ORDERED: HYDROCHLOROTHIAZIDE 12.5 MG CAP PO SCH (09:00)
[2017-02-14] MEDS ORDERED: PREGABALIN 25 MG CAP PO SCH (09:00)
[2017-02-14] MEDS ORDERED: ALPHA LIPOIC ACID PO SCH (09:00)
[2017-02-14] MEDS ORDERED: BISACODYL (EC) 5 MG TAB PO SCH (09:00)
[2017-02-14] MEDS ORDERED: ASCORBIC ACID 500 MG TAB PO SCH (09:00)
--- NOTE | 2017-02-14 09:00 | QN ---
Documentation Comment 1. Chronic kidney disease rule out diabetic nephropathy 2. Diabetes mellitus type 2 last A1c 7.4/good in-house control so far 3. Dyslipidemia 4. Chronic hypochromic anemia 5. Multiple drug allergies * Continue current treatment plan, further interventions per clinical course. PAULINE OLIVEROS Feb 14, 2017 09:00
[2017-02-14] MEDS ORDERED: GLUCAGON 1 MG INJ IM PRN (09:30)
[2017-02-14] MEDS ORDERED: GLUCOSE GEL 15 GRAM TUBE BUCCAL PRN (09:30)
[2017-02-14] MEDS ORDERED: DEXTROSE 50% 50 ML SYRINGE IV PRN ×2 (09:30)
[2017-02-14] MEDS ORDERED: GLUCOSE GEL 15 GRAM TUBE PO PRN ×2 (09:30)
[2017-02-14] MEDS ORDERED: LINAGLIPTIN 5 MG TABLET PO SCH (09:30)
[2017-02-14] MEDS ORDERED: VANCOMYCIN 1.5 GM in SOD CHLORIDE 0.9% 250 ML IVPB SCH (10:30)
[2017-02-14] MEDS ORDERED: PREGABALIN 50 MG CAP PO ONE (12:00)
--- NOTE | 2017-02-14 14:38 | CONS ---
DATE OF ADMISSION: 02/13/2017 DATE OF CONSULTATION: TYPE OF CONSULTATION: Renal. Thank you, Dr. Oliveros, for asking me to participate in medical management of this patient. REASON FOR CONSULTATION: Chronic kidney disease. HISTORY OF PRESENT ILLNESS: This 61-year-old man was admitted yesterday after he found some hardwar e from a previous left foot surgery extending out from the lateral aspect of his ankle. The patient has a history of a left foot cuboid bone fracture from an injury in April of 2016. The patient ev entually saw Dr. Jeff Valladares in August and was diagnosed with this fracture. The patient eventual ly had surgery 12/17/2016 to fix the left foot cuboid bone fracture. This surgery was done by Dr. Eleno Valladares. The patient was doing well postoperatively and was being seen at a wound care center wh en he was noticed to have a screw extending from his left ankle. The patient called Dr. Valladares, was admitted to the hospital yesterday and had surgery yesterday. The patient is now 1 day postop a re construction of his left foot surgery. The surgery as described was a Charcot foot reconstruction. The patient says that he has a history of type 2 diabetes mellitus since 2013. He has a history of peripheral neuropathy; however, it was never diagnosed as diabetic neuropathy. The patient does h ave a history of an elevated serum creatinine and did see a marketing analytics manager somewhere in the [facility] 2 years ago, and he said he had a complete workup which was negative. The patient is on losartan /hydrochlorothiazide for hypertension. He said that was discontinued. He was switched to another edicine but the other medicine he does not know the name of, was eventually discontinued. The patie nt denies diabetic retinopathy. PAST MEDICAL HISTORY: Remarkable for hypertension, hyperlipidemia. ALLERGIES: THE PATIENT HAS A LARGE NUMBER OF ALLERGIES INCLUDIN. BEE STING. 2. PENICILLIN. 3. BACITRACIN. 4. CEPHALEXIN. 5. ENALAPRIL, 6. GABAPENTIN. 7. GRISEOFULVIN. 8. NEOMYCIN. 9. PHENOBARBITAL. 10. POLYMYXIN. CURRENT MEDICATIONS: Include the followin. Azithromycin. 2. Xarelto 10 mg a day. 3. Atorvastatin 40 mg a day. 4. Losartan HCT 100/12.5. 5. Aspirin 81 mg a day. 6. Lyrica 50 mg twice a day. 7. Metformin 1000 mg with breakfast and dinner. 8. Januvia 100 mg a day. 9. Vitamin B complex. 10. Alpha- Lipoic acid. PHYSICAL EXAMINATION: GENERAL: At this time reveals a well-developed man in no apparent distress. VITAL SIGNS: Temperature 98, pulse of 87, respirations 18, blood pressure 126/75, O2 saturation 99% on room air. HEENT: Head normocephalic. Eyes: Extraocular muscles intact. NOSE AND MOUTH: Normal. NECK: Supple. No neck vein distention. LUNGS: Clear to auscultation. HEART: Regular rhythm. No murmurs, gallops or rubs. ABDOMEN: Soft, nontender, no masses or megaly. EXTREMITIES: He has a large boot cast on the left leg. Right leg, no peripheral edema. LABORATORIES: His laboratory tests done today, sodium 136, potassium 4.3, chloride 106, CO2 24, BUN 24, creatinine 1.5. His hemoglobin A1c is 7.4, hemoglobin 10.3, hematocrit 32, white blood count 5 900. LABORATORY DATA: Urinalysis was not done. IMPRESSION: This patient seems to have chronic kidney disease. He denies a history of proteinuria. He says that he has only had diabetes for 3 years; however, he does have a history of peripheral neuropathy which brings up the possibility of subclinical diabetes mellitus that could cause some un derlying kidney disease. It will be interesting to see whether he has any significant proteinuria a t this time. He is on Losartan HCT. The Losartan certainly can cause a rise in the serum creatinin e. The Losartan does have a renal protective effect, especially in people with type 2 diabetes erin itus. He has had previous renal ultrasounds in the past. PLAN: 1. Order a urinalysis and urine protein creatinine ratio. 2. Continue current medications. 3. Follow up with either the marketing analytics manager he saw before or he can see me in my office. I gave him my business card and I would be happy to follow him. 4. His renal function should be checked as an outpatient and I did encourage him to follow up at [facility] with his primary care physician, Thank you for asking me to participate in medical management of this patient. Dictated By: IFRAH GALICIA MD, ND/GEOVANI Conf#: [id number] DID#: [id number] CC: PAULINE OLIVEROS MD;*[facility]*
--- NOTE | 2017-02-14 17:20 | PDOCDIS ---
Discharge Instructions CONDITION Patient Condition: Stable HOME CARE INSTRUCTIONS: Diet Instructions: Carb controlledSpecial Diet: Carb controlled ACTIVITY: Activity Restrictions: Slowly Increase Activity Rest between Activity Avoid heavy lifting Do not Drive Avoid Heavy Housework Bathing Restrictions: Sponge Bath OTHER ORDERS: Other Orders: Follow-up with your primary care physician within 1-2 weeks and ensure that he checks her renal function and reviews your medication. He may also follow-up with Dr. Jensen if you want to, you have his information. PAULINE OLIVEROS Feb 14, 2017 17:20
--- NOTE | 2017-02-14 17:45 | DS ---
Date/Time of Note Date/Time of Note DATE: 02/14/17 TIME: 17:39 Discharge Summary Admission/Discharge Info Admit Date/Time February 13, 2017 at 19:43 Discharge Date/Time Final Diagnosis 1. 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 diabetes mellitus type 2 3. chronic kidney disease 4. Hypertension controlled 5. dyslipidemia 6. DVT prophylaxis on Xarelto . Patient Condition: Stable Consults Ortho: Jeff Valladares Nephro: Mikey Hx of Present Illness Chief complaint: Screw coming out her left foot Patient is a 61-year-old gentleman who was sent in by his engineer station mainline Dr. Valladares after patient went to the wound care clinic and was noticed to have a visible screw head coming out of his left foot. He is is 8 weeks status post a left cuboid fracture open reduction internal fixation as well as a calcaneal cuboid and talonavicular joint arthrodesis. Patient has a history of Charcot neuropathy with diabetes mellitus. He has been doing well over the past 8 weeks with improving wound over the lateral aspect of his foot that is being treated by wound care. Patient was seen postop and he states that he is doing well. Currently denies any pain. He is a left lower extremity is in a cast and wrap with a wound VAC in place. Allergies: Bee sting, penicillin, bacitracin, cephalexin, enalaprilat, gabapentin, griseofulvin, neomycin, and phenobarbital, and polymyxin Medications: See MAR . Hospital Course The patient was admitted and seen by orthopedic surgery and underwent left food irrigation and debridement as well as left foot hardware removal. The surgery was done on the day of admission February 13, 2017. The patient has done well and is feeling much better and interestingly has been cleared for discharge by the surgeon. He is however awaiting a wound VAC which is placed the patient can go home. I obtained nephrology consultation because of the mildly abnormal renal function and to make sure that it was safe for patient to remain on metformin, losartan as well as hydrochlorothiazide. I also ordered a renal ultrasound which the patient refused. Nephrology saw the patient and determined that patient will clinic continue on his current regimen, but he will benefit from serial lab monitoring of his electrolytes. This was communicated to the patient and the patient verbalized understanding. In my opinion he remains stable for discharge at this time. . Home Meds Active Scripts Azithromycin* (Azithromycin*) 250 Mg Tablet, 250 MG PO DAILY, #6 TAB Prov:OSCAR POLLARD MD 12/25/16 Pregabalin* (Lyrica*) 50 Mg Capsule, 50 MG PO BID for 30 Days, CAP reduced to BID due to renal function Prov:PAULINE OLIVEROSSteve 12/18/16 Reported Medications Rivaroxaban* (Xarelto*) 10 Mg Tablet, 10 MG PO DAILY, TAB 12/24/16 Vitamin B Complex (Vitamin B Complex) 1 Each Capsule, 1 EACH PO DAILY, CAP 12/24/16 Alpha Lipoic Acid (Alpha Lipoic Acid) 200 Mg Tablet, 400 MG PO DAILY, TAB 12/24/16 Metformin Hcl* (Metformin Hcl*) 500 Mg Tablet, 1000 MG PO WITH BREAKFAST DINNE, #60 TAB 12/24/16 Sitagliptin* (Januvia*) 100 Mg Tablet, 100 MG PO DAILY, #30 TAB 12/17/16 Losartan-Hydrochlorothiazide (Losartan-HCTZ) 100-12.5 Mg Tab, 1 TAB PO DAILY, TAB 12/17/16 Atorvastatin* (Atorvastatin*) 40 Mg Tablet, 40 MG PO QHS, #30 TAB 12/17/16 Aspirin* (Aspirin* EC) 81 Mg Tablet.dr, 81 MG PO DAILY, TAB 12/17/16 Follow-up Plan Follow-up with primary care physician, outpatient assurance senior manager insurance, and orthopedic surgeon in the next 1-2 weeks. Primary Care Provider Not On Staff Doctor Time spent on discharge: > 30 minutes Pending Labs Laboratory Tests Test 02/13/17 19:38 02/14/17 04:12 02/14/17 08:47 02/14/17 12:48 White Blood Count 7.310^3/ul (4.8-10.8) 5.910^3/ul (4.8-10.8) Red Blood Count 4.6510^6/ul (4.70-6.10) 3.9010^6/ul (4.70-6.10) Hemoglobin 12.2g/dl (14.0-18.0) 10.3g/dl (14.0-18.0) Hematocrit 37.9% (42.0-52.0) 32.0% (42.0-52.0) Mean Corpuscular Volume 81.5fl (82.0-101.0) 82.1fl (82.0-101.0) Mean Corpuscular Hemoglobin 26.2pg (29.0-33.0) 26.4pg (29.0-33.0) Mean Corpuscular Hemoglobin Concent 32.2g/dl (32.0-37.0) 32.2g/dl (32.0-37.0) Red Cell Distribution Width 15.2% (11.5-14.5) 15.6% (11.5-14.5) Platelet Count 40769^3/UL (140-415) 31883^3/UL (140-415) Mean Platelet Volume 10.9fl (7.4-10.4) 11.2fl (7.4-10.4) Neutrophils % 47.6% (39.0-77.0) 51.2% (39.0-77.0) Lymphocytes % 36.2% (15.0-51.0) 33.2% (15.0-51.0) Monocytes % 8.7% (0.0-11.0) 9.1% (0.0-11.0) Eosinophils % 6.2% (0.0-7.0) 5.7% (0.0-7.0) Basophils % 0.7% (0.0-2.0) 0.5% (0.0-2.0) Nucleated Red Blood Cells % 0.0/100WBC (0.0-0.0) 0.0/100WBC (0.0-0.0) Neutrophils # 3.510^3/ul (1.6-7.5) 3.010^3/ul (1.6-7.5) Lymphocytes # 2.610^3/ul (0.8-2.9) 2.010^3/ul (0.8-2.9) Monocytes # 0.610^3/ul (0.3-0.9) 0.510^3/ul (0.3-0.9) Eosinophils # 0.510^3/ul (0.0-0.5) 0.310^3/ul (0.0-0.5) Basophils # 0.110^3/ul (0.0-0.1) 0.010^3/ul (0.0-0.1) Nucleated Red Blood Cells # 0.010^3/ul (0.0-0.0) 0.010^3/ul (0.0-0.0) Erythrocyte Sedimentation Rate 22mm/Hr (0-20) Prothrombin Time 12.4Sec (12.2-14.2) Prothrombin Time Ratio 1.0 INR International Normalized Ratio 0.92 Activated Partial Thromboplast Time 27.3Sec (25.0-35.0) Sodium Level 141mmol/L (135-144) 138mmol/L (135-144) Potassium Level 4.4mmol/L (3.5-5.1) 4.3mmol/L (3.5-5.1) Chloride Level 105mmol/L (97-110) 106mmol/L (97-110) Carbon Dioxide Level 28mmol/L (21-31) 24mmol/L (21-31) Anion Gap 12 (8-16) 12 (8-16) Blood Urea Nitrogen 27mg/dl (7-20) 24mg/dl (7-20) Creatinine 1.67mg/dl (0.61-1.24) 1.50mg/dl (0.61-1.24) Glucose Level 159mg/dl (70-220) 139mg/dl (70-220) Hemoglobin A1c 7.2% (0-5.9) 7.4% (0-5.9) Calcium Level 10.2mg/dl (8.4-10.2) 9.2mg/dl (8.4-10.2) Troponin I < 0.012ng/ml (0.00-0.12) C-Reactive Protein < 0.5mg/dl (0.0-0.9) Phosphorus Level 4.6mg/dl (2.5-4.9) Magnesium Level 1.7mg/dl (1.7-2.5) Total Bilirubin 0.1mg/dl (0.2-1.3) Direct Bilirubin 0.00mg/dl (0.00-0.20) Indirect Bilirubin 0.1mg/dl (0-1.1) Aspartate Amino Transf (AST/SGOT) 23IU/L (15-46) Alanine Aminotransferase (ALT/SGPT) 41IU/L (13-69) Alkaline Phosphatase 93IU/L (42-121) Total Protein 6.7g/dl (6.1-8.1) Albumin 4.1g/dl (3.3-4.9) Globulin 2.60g/dl (1.3-3.2) Albumin/Globulin Ratio 1.57 Triglycerides Level 239mg/dl (0-149) Cholesterol Level 134mg/dl (100-200) LDL Cholesterol, Calculated 51mg/dl HDL Cholesterol 35mg/dl (30-78) Cholesterol/HDL Ratio 3.8RATIO Thyroid Stimulating Hormone (TSH) 4.520MIU/L (0.465-4.680) Bedside Glucose 157mg/dL (70-220) 158mg/dL (70-220) PAULINE OLIVEROS Feb 14, 2017 17:45
[2017-02-14] MEDS ORDERED: metFORMIN 500 MG TAB PO SCH (17:55)
[2017-02-14 20:09] VITALS: BP 120/70; RESP 20
[2017-02-14] MEDS ORDERED: ATORVASTATIN 40 MG TAB PO SCH (21:00)
--- NOTE | 2017-02-18 07:35 | PN ---
Date/Time of Note Date/Time of Note DATE: 02/14/17 TIME: 07:35 Assessment/Plan Lines/Catheters IV Catheter Type (from Nrsg): Saline Lock Assessment/Plan Assessment/Plan 02/14/2017 POD#1 s/p Left foot hardware removal and irrigation and debridement. - Vancomysin IV, Currently micro is still pending - NWB to the LLE - Will require home health for q 4 days wound vac change - DM 2 control essential - cont DVT prophx - will DC home when home health is set up, will await final cultures in case need for home IV Abx. --- Eleno Granda MD 02/14/2017 Subjective Detailed Summary Free Text/Dictation From 02/14/2017 Patient was doing well post op. Pain was controlled. Denied any fevers, chills, nausea vomiting. Exam/Review of Systems Vital Signs Vitals Vital Signs Date Time Temp Pulse Resp B/P Pulse Ox O2 Delivery O2 Flow Rate FiO2 02/14/17 20:09 98.2 96 20 120/70 97 Exam Constitutional: alert, oriented, well developed Musculoskeletal: other (LLE/ Splint intact, toes wiggle wound vac intact, toes wwp) Results Result Diagram: 02/14/17 0412 02/14/17 0412 RICHIE GRANDA MD Feb 18, 2017 07:35
== END 2017-02-14 20:28 | disposition home or self-care (01) | DRG 504 ==
LOC: E/R 19:11 → MS1 19:43 → UNDOADMIN 19:43
PROVIDERS: ADMIT Family Medicine; ATTEND Family Medicine
PROC: 0HDNXZZ Extraction of Left Foot Skin, External Approach (ICD-10-PCS; 2017-02-13)
PROC: 0QC Lower Bones, Extirpation (ICD-10-PCS; principal; 2017-02-13 20:30)
DX: T84.89XA Other specified complication of internal orthopedic prosthetic devices, implants and grafts, initial encounter (principal); A52.16 Charcot's arthropathy (tabetic); G62.9 Polyneuropathy, unspecified; E11.9 Type 2 diabetes mellitus without complications; I10 Essential (primary) hypertension; D50.9 Iron deficiency anemia, unspecified; Y79.8 Miscellaneous orthopedic devices associated with adverse incidents, not elsewhere classified; Y92.009 Unspecified place in unspecified non-institutional (private) residence as the place of occurrence of the external cause; E78.00 Pure hypercholesterolemia, unspecified; E78.5 Hyperlipidemia, unspecified
CPT/HCPCS: 36415; 71010; 73610; 80048; 80053; 80061; 82962; 83036; 83735; 84100; 84443; 84484; 85025; 85610; 85651; 85730; 86140; 87070; 93005; 96374; C9113; J2060; J2370; J2405; J2765; J3370; J7030; J7050